=== PATIENT | female | born 1950 | race Caucasian/White ===

== ENCOUNTER → 2017-09-08 | Outpatient (CLI) | payer MEDICARE ==
--- NOTE | 2017-09-14 13:10 | MM ---
Reason for exam: screening (asymptomatic). Last mammogram was performed 1 year and 1 month ago. History: Patient is postmenopausal. Took estrogen for 11 years beginning at age 39. Took progesterone for 11 years beginning at age 39. Physical Findings: A clinical breast exam by your physician is recommended on an annual basis and results should be correlated with mammographic findings. MG 3D Screening Mammo W/Cad Bilateral CC and MLO view(s) were taken. Prior study comparison: August 02, 2016, bilateral MG screening mammo w CAD. July 27, 2015, bilateral MG 3d screening mammo w/cad. There are scattered fibroglandular densities. There is chronic nodularity in the right breast. No significant changes when compared with prior studies. ASSESSMENT: Negative, BI-RAD 1 RECOMMENDATION: Routine screening mammogram of both breasts in 1 year.
== END | disposition home or self-care (01) ==
LOC: RADMAMWWP 08:33
PROVIDERS: ATTEND Internal Medicine Geriatric Medicine
DX: Z12.31 Encounter for screening mammogram for malignant neoplasm of breast (principal)
CPT/HCPCS: 77063; G0202

== ENCOUNTER 2018-09-15 06:19 | Inpatient (IN) | payer MEDICARE ==
[2018-09-15] MEDS ORDERED: MORPHINE SULFATE 2 MG/ML SYRINGE IVP STA (07:39)
--- NOTE | 2018-09-15 07:44 | ED ---
General Adult HPI - General Chief complaint: Abdominal Pain Stated complaint: Abdominal Pain Source: patient Mode of arrival: wheelchair Limitations: no limitations - History of Present Illness Initial comments: Dictation was produced using [employer] dictation software. please excuse any grammatical, word or spelling errors. Chief Complaint: 67-year-old female with past medical history of cholecystectomy, diabetes and dyslipidemia presents with left lower quadrant abdominal pain since 4:30 this morning. History of Present Illness: An is 67-year-old female. She was rolling in bed when she experienced a sharp tearing pain in her left lower quadrant, supraumbilical area. Patient states she's never expressed pain like this in the past. Patient has history of cholecystectomy. Denies any constitutional symptoms. No nausea or vomiting. Patient states she felt slightly nauseous in the beginning however symptoms improved. Patient states her pain is sharp and severe. Worse with movement. Over the last several days patient has had some gnawing pain in that area. Denies any changes in bowel habits. The ROS documented in this emergency department record has been reviewed and confirmed by me. Those systems with pertinent positive or negative responses have been documented in the HPI. All other systems are other negative and/or noncontributory. - Related Data Home Medications Medication Instructions Recorded Confirmed Cyanocobalamin (Vitamin B-12) 1,000 mcg PO DAILY 09/15/18 09/15/18 [Vitamin B-12] Ergocalciferol (Vitamin D2) 50,000 unit PO Q14D 09/15/18 09/15/18 [Vitamin D2] Losartan Potassium 50 mg PO DAILY 09/15/18 09/15/18 [place]-3 Fatty Acids [Melstone-3] 1,000 mg PO DAILY 09/15/18 09/15/18 Omeprazole [PriLOSEC] 20 mg PO AC-BRKFST 09/15/18 09/15/18 Pravastatin Sodium [Pravachol] 40 mg PO HS 09/15/18 09/15/18 Turmeric/Cumin 1 tab PO DAILY 09/15/18 09/15/18 Ubidecarenone [Co Q-10] 100 mg PO DAILY 09/15/18 09/15/18 Vits A,C,E/Lutein/Minerals 1 tab PO DAILY 09/15/18 09/15/18 [Ocuvite with Lutein Tablet] metFORMIN HCL [Glucophage] 500 mg PO BID 09/15/18 09/15/18 Allergies Allergy/AdvReac Type Severity Reaction Status Date / Time No Known Allergies Allergy Verified 09/15/18 09:38 Review of Systems ROS Statement: Those systems with pertinent positive or pertinent negative responses have been documented in the HPI. ROS Other: All systems not noted in ROS Statement are negative. Past Medical History Past Medical History: Diabetes Mellitus, Hyperlipidemia History of Any Multi-Drug Resistant Organisms: None Reported Past Surgical History: Cholecystectomy, Joint Replacement Additional Past Surgical History / Comment(s): left knee replaced, left eye surgery, Past Psychological History: No Psychological Hx Reported Smoking Status: Never smoker Past Alcohol Use History: Occasional Past Drug Use History: None Reported General Exam - General Exam Comments Initial Comments: PHYSICAL EXAM: General Impression: Alert and oriented x3, not in acute distress HEENT: Normocephalic atraumatic, extra-ocular movements intact, pupils equal and reactive to light bilaterally, mucous membranes moist. Cardiovascular: Heart regular rate and rhythm, S1&S2 audible, no murmurs, rubs or gallops Chest: Lungs clear to auscultation bilaterally, no rhonchi, no wheeze, no rales Abdomen: Bowel sounds present, abdomen soft, mild tenderness to palpation over the left lower quadrant, suprapubic umbilical area, no palpable masses Musculoskeletal: Pulses present and equal in all extremities, no peripheral edema Motor: Power 5/5 bilaterally, no focal deficits noted Neurological: CN II-XII grossly intact, no focal motor or sensory deficits noted Skin: Intact with no visualized rashes Psych: Normal affect and mood Limitations: no limitations Course Vital Signs 09/15/18 09/15/18 09/15/18 06:43 08:30 09:00 Temperature 98.2 F Pulse Rate 61 Respiratory 18 Rate Blood Pressure 209/85 195/97 184/75 O2 Sat by Pulse 100 Oximetry Medical Decision Making - Medical Decision Making 67-year-old female presents with chief complaint of acute onset tearing suprapubic and left lower quadrant abdominal tenderness. Vital signs upon arrival shows hypertension of 209 systolic. Pulse vital signs within acceptable limits. Differential includes abdominal hernia, nephrolithiasis, symptomatic cystitis, diverticulitis. Laboratory evaluation obtained. Hemoglobin stable at 12.5. Rest of CBC unremarkable. Metabolic panel is unremarkable. Urinalysis negative. CT abdomen and pelvis shows 7 x 4 x 10 cm left rectus abdominis wall hematoma. Patient denies any blood thinners. Repeat blood pressure shows elevated blood pressure 199/104. Patient given hydralazine. Discussed patient case with Dr. Holder who is on-call for general surgery. Recommends that patient be observed for 24 hours. Abdominal binder was placed over patient's abdomen. Patient be admitted to Dr. márquez.. - Lab Data Result diagrams: 09/15/18 08:08 09/15/18 08:08 Lab Results 09/15/18 09/15/18 09/15/18 Range/Units 08:08 08:08 08:08 WBC 7.5 (3.8-10.6) k/uL RBC 4.42 (3.80-5.40) m/uL Hgb 12.5 (11.4-16.0) gm/dL Hct 39.1 (34.0-46.0) % MCV 88.4 (80.0-100.0) fL MCH 28.4 (25.0-35.0) pg MCHC 32.1 (31.0-37.0) g/dL RDW 13.8 (11.5-15.5) % Plt Count 202 (150-450) k/uL Neutrophils % 79 % Lymphocytes % 14 % Monocytes % 4 % Eosinophils % 2 % Basophils % 1 % Neutrophils # 5.9 (1.3-7.7) k/uL Lymphocytes # 1.0 (1.0-4.8) k/uL Monocytes # 0.3 (0-1.0) k/uL Eosinophils # 0.2 (0-0.7) k/uL Basophils # 0.0 (0-0.2) k/uL Hypochromasia Slight Sodium 143 (137-145) mmol/L Potassium 4.7 (3.5-5.1) mmol/L Chloride 110 H (98-107) mmol/L Carbon Dioxide 25 (22-30) mmol/L Anion Gap 8 mmol/L BUN 15 (7-17) mg/dL Creatinine 0.66 (0.52-1.04) mg/dL Est GFR (CKD-EPI)AfAm >90 (>60 ml/min/1.73 sqM) Est GFR (CKD-EPI)NonAf >90 (>60 ml/min/1.73 sqM) Glucose 116 H (74-99) mg/dL Calcium 10.1 (8.4-10.2) mg/dL Total Bilirubin 0.6 (0.2-1.3) mg/dL AST 24 (14-36) U/L ALT 19 (9-52) U/L Alkaline Phosphatase 68 (38-126) U/L Total Protein 7.6 (6.3-8.2) g/dL Albumin 4.3 (3.5-5.0) g/dL Lipase 129 (23-300) U/L Urine Color Light Yellow Urine Appearance Clear (Clear) Urine pH 5.5 (5.0-8.0) Ur Specific [place] 1.008 (1.001-1.035) Urine Protein Negative (Negative) Urine Glucose (UA) Negative (Negative) Urine Ketones Negative (Negative) Urine Blood Negative (Negative) Urine Nitrite Negative (Negative) Urine Bilirubin Negative (Negative) Urine Urobilinogen <2.0 (<2.0) mg/dL Ur Leukocyte Esterase Negative (Negative) Disposition Clinical Impression: Hematoma Disposition: ADMITTED IP TO THIS HOSP Condition: Fair Referrals: Chet Ibarra MD [Primary Care Provider] - 1-2 days Decision Time: 09:56
[2018-09-15 08:23] LABS: Basophils % (A) 1 %; Eosinophils # (A) 0.2 k/uL (0-0.7); Eosinophils % (A) 2 %; HCT 39.1 % (34.0-46.0); HGB 12.5 gm/dL (11.4-16.0); Hypochromasia Slight; Lymphocytes % (A) 14 %; MCH 28.4 pg (25.0-35.0); MCHC 32.1 g/dL (31.0-37.0); MCV 88.4 fL (80.0-100.0); Monocytes # (A) 0.3 k/uL (0-1.0); Monocytes % (A) 4 %; Neutrophils # (A) 5.9 k/uL (1.3-7.7); Neutrophils % (A) 79 %; Platelet Count 202 k/uL (150-450); RBC 4.42 m/uL (3.80-5.40); RDW 13.8 % (11.5-15.5); WBC 7.5 k/uL (3.8-10.6)
[2018-09-15 08:25] LABS: Appearance,Urine Clear (Clear); Bilirubin,Urine Negative (Negative); Blood,Urine Negative (Negative); Color,Urine Light Yellow; Glucose,Urine (UA) Negative (Negative); Ketones,Urine Negative (Negative); Leukocyte Esterase,Urine Negative (Negative); Nitrite,Urine Negative (Negative); PH, Urine 5.5 (5.0-8.0); Protein,Urine Negative (Negative); Specific Gravity,Urine 1.008 (1.001-1.035); Urobilinogen,Urine <2.0 mg/dL (<2.0)
[2018-09-15 08:34] LABS: ALT 19 U/L (9-52); AST 24 U/L (14-36); Albumin 4.3 g/dL (3.5-5.0); Alkaline Phosphatase 68 U/L (38-126); Anion Gap 8 mmol/L; Blood Urea Nitrogen 15 mg/dL (7-17); Calcium 10.1 mg/dL (8.4-10.2); Carbon Dioxide 25 mmol/L (22-30); Chloride 110 mmol/L (98-107); Glucose 116 mg/dL (74-99); Lipase 129 U/L (23-300); Potassium 4.7 mmol/L (3.5-5.1); Sodium 143 mmol/L (137-145); Total Bilirubin 0.6 mg/dL (0.2-1.3); Total Protein 7.6 g/dL (6.3-8.2)
--- NOTE | 2018-09-15 09:31 | CT ---
EXAMINATION TYPE: CT abdomen pelvis w con DATE OF EXAM: 09/15/2018 COMPARISON: None INDICATION: left side abd pain DLP: 1228.9 mGycm, Automated exposure control for dose reduction was used. CONTRAST: 100 mL of Isovue 300. Study performed without Oral Contrast TECHNIQUE: Axial images were obtained from above the diaphragm to the pubic rami in the axial plane a t 5 mm thick sections. Reconstructed images are reviewed on the computer in the coronal plane. FINDINGS: Limited CT sections are obtained the lung bases. The lung bases are clear. Mild coronary artery vanita cification may be present. Small hiatal hernia may be present. CT ABDOMEN: Liver: Normal Spleen: Normal Pancreas: Normal Adrenal glands: There is prominence of the anterior right adrenal gland measuring 1.5 cm in transvers e dimension. Left adrenal gland appears normal. Gallbladder: Not identified. Kidneys: No masses are evident. No hydronephrosis is present. There is a 7.4 cm cyst on the inferio r lateral portion right kidney measuring 7.4 cm and 4 Hounsfield units. Tiny cortical renal cysts pre sent on the left mid kidney measuring 0.5 cm and is too small to classify as simple. Delayed images were obtained through the kidneys, which remain unremarkable. Aorta: Vascular calcification is within the aorta. Inferior vena cava: Normal. CT PELVIS: There is a rectus abdominis muscle oval density present. This measures approximately 7.4 x 4.7 x 10.4 cm. Left Rectus abdominis muscle wall hematoma is suspected. Loops of bowel within the abdomen and pelvis are normal. Studies performed without oral contrast limiting bowel evaluation. Appendix: Not identified. No suspicious tubular structures or inflammatory changes are evident. Urinary bladder: Normal. Genitourinary structures: Uterus and adnexal regions are normal. Osseous structures: No suspicious lytic or sclerotic lesions. There is some sclerosis at the pubic sy mphysis. Pubic symphysitis could be considered. IMPRESSIONS: 1. Rectus abdominis muscle hematoma anterior left abdominal wall
[2018-09-15] MEDS ORDERED: LABETALOL 5 MG/ML VIAL MDV IVP STA (09:54)
[2018-09-15] MEDS ORDERED: hydrALAZINE HCL 20 MG/ML 1 ML VIAL IVP STA (09:55)
[2018-09-15] MEDS ORDERED: NALOXONE 0.4 MG/ML 1 ML VIAL IV PRN (09:56)
[2018-09-15] MEDS ORDERED: MORPHINE SULFATE 4 MG/ML SYRINGE IV PRN (09:56)
[2018-09-15] MEDS: SODIUM CHLORIDE 0.9% 1,000 ML IV SCH (10:19)
[2018-09-15 10:29] LABS: INR 0.9 (<1.2); Prothrombin Time 9.6 sec (9.0-12.0)
[2018-09-15 12:34] VITALS: BMI 33.4
[2018-09-15 13:09] VITALS: RESP 16
[2018-09-15] MEDS ORDERED: LOSARTAN 50 MG TAB PO STA (13:25)
--- NOTE | 2018-09-15 13:32 | P.HPIM ---
History of Present Illness H&P Date: 09/15/18 Chief Complaint: Abdominal pain secondary to hematoma This is a pleasant 67-year-old female with a past medical history of cholecystectomy, diabetes, hyperlipidemia who presented to the emergency department with left lower quadrant abdominal pain since 4:30 this morning. Patient states that she was rolling in bed when she experiences sharp tearing pain in her left lower quadrant supraumbilical area. Patient states that she's never experienced pain like this before in the past. She does have history of cholecystectomy. She denies any nausea or vomiting. Denies any sort of trauma. Patient states that she did have some slight nausea in the beginning however those symptoms have improved. Patient states that the pain is sharp and pascual [place] and worsen with movement. Patient presents now resting comfortably without any complaints. Patient denies hematuria, nausea, vomiting. Review of Systems Constitutional: Denies anorexia, Denies chills, Denies fatigue, Denies fever, Denies weight gain, Denies weight loss Eyes: denies blurred vision, denies discharge Ears: deny: decreased hearing, ear discharge Ears, nose, mouth and throat: Denies dental pain, Denies dysphagia, Denies epistaxis Cardiovascular: Reports orthopnea, Denies chest pain, Denies dyspnea on exertion , Denies edema, Denies lightheadedness, Denies palpitations, Denies rapid heart beat, Denies syncope Respiratory: Denies cough, Denies dyspnea, Denies snoring Gastrointestinal: Reports abdominal pain, Denies change in bowel habits, Denies coffee ground emesis, Denies hematemesis, Denies hematochezia, Denies loss of appetite, Denies melena, Denies nausea, Denies vomiting Genitourinary: Denies dysuria, Denies hematuria Musculoskeletal: Denies gait dysfunction, Denies muscle weakness Integumentary: Denies pruritus, Denies rash, Denies wounds Neurological: Denies aphasia, Denies confusion, Denies syncope, Denies vertigo, Denies weakness Psychiatric: Denies anxiety, Denies depression, Denies sadness/tearfulness, Denies sleep disturbances Endocrine: Denies excessive thirst, Denies flushing Hematologic/Lymphatic: Denies easy bleeding, Denies easy bruising Past Medical History Past Medical History: Diabetes Mellitus, Hyperlipidemia History of Any Multi-Drug Resistant Organisms: None Reported Past Surgical History: Cholecystectomy, Joint Replacement Additional Past Surgical History / Comment(s): left knee replaced, left eye surgery, Past Anesthesia/Blood Transfusion Reactions: Postoperative Nausea & Vomiting ( PONV) Past Psychological History: No Psychological Hx Reported Smoking Status: Never smoker Past Alcohol Use History: Occasional Past Drug Use History: None Reported Medications and Allergies Home Medications Medication Instructions Recorded Confirmed Type Cyanocobalamin (Vitamin B-12) 1,000 mcg PO DAILY 09/15/18 09/15/18 History [Vitamin B-12] Ergocalciferol (Vitamin D2) 50,000 unit PO Q14D 09/15/18 09/15/18 History [Vitamin D2] Losartan Potassium 50 mg PO DAILY 09/15/18 09/15/18 History [place]-3 Fatty Acids [[place]-3] 1,000 mg PO DAILY 09/15/18 09/15/18 History Omeprazole [PriLOSEC] 20 mg PO AC-BRKFST 09/15/18 09/15/18 History Pravastatin Sodium [Pravachol] 40 mg PO HS 09/15/18 09/15/18 History Turmeric/Cumin 1 tab PO DAILY 09/15/18 09/15/18 History Ubidecarenone [Co Q-10] 100 mg PO DAILY 09/15/18 09/15/18 History Vits A,C,E/Lutein/Minerals 1 tab PO DAILY 09/15/18 09/15/18 History [Ocuvite with Lutein Tablet] metFORMIN HCL [Glucophage] 500 mg PO BID 09/15/18 09/15/18 History Allergies Allergy/AdvReac Type Severity Reaction Status Date / Time No Known Allergies Allergy Verified 09/15/18 09:38 Physical Exam Vitals: Vital Signs Temp Pulse Pulse Resp BP BP Pulse Ox 09/15/18 12:00 98.4 F 78 16 194/76 09/15/18 11:10 185/75 09/15/18 10:51 63 18 195/82 100 09/15/18 10:00 199/104 09/15/18 09:55 98.2 F 75 18 199/104 100 09/15/18 09:00 184/75 09/15/18 08:30 195/97 09/15/18 06:43 98.2 F 61 18 209/85 100 Intake and Output 09/14/18 09/15/18 09/15/18 22:59 06:59 14:59 Intake Total 20 Balance 20 Intake: Intake, IV Titration 20 Amount Sodium Chloride 0.9% 1, 20 000 ml @ 20 mls/hr IV . Q24H [facility] Rx#:[id number] Other: Weight 99.79 kg 99.79 kg - Constitutional General appearance: average body habitus, cooperative, no acute distress - EENT Eyes: anicteric sclerae, EOMI, PERRLA ENT: hearing grossly normal, NA/AT - Neck Neck: no lymphadenopathy, normal ROM, no rigidity, no stridor, no thyromegaly - Respiratory Respiratory: bilateral: CTA, negative: diminished, dullness, rales, rhonchi, wheezing, prolonged expiration, prolonged inspiration, other - Cardiovascular Rhythm: regular Heart sounds: normal: S1, S2 Abnormal Heart Sounds: no systolic murmur, no diastolic murmur, no rub, no S3 Gallop, no S4 Gallop, no click, no other - Gastrointestinal General gastrointestinal: normal bowel sounds, no organomegaly, soft, tenderness (No ecchymosis noted) Localized gastrointestinal: tender: LLQ - Integumentary Integumentary: normal turgor - Neurologic Neurologic: CNII-XII intact - Musculoskeletal Musculoskeletal: gait normal, strength equal bilaterally - Psychiatric Psychiatric: A&O x's 3, appropriate affect, intact judgment & insight Results CBC & Chem 7: 09/15/18 08:08 09/15/18 08:08 Labs: Abnormal Lab Results - Last 24 Hours (Table) 09/15/18 Range/Units 08:08 Chloride 110 H (98-107) mmol/L Glucose 116 H (74-99) mg/dL Thrombosis Risk Factor Assmnt - Choose All That Apply Each Factor Represents 1 point: Obesity (BMI >25), Swollen legs (current), Varicose veins Each Risk Factor Represents 2 Points: Age 61-74 years Thrombosis Risk Factor Assessment Total Risk Factor Score: 5 Thrombosis Risk Factor Assessment Level: High Risk Assessment and Plan Plan: 1. Abdominal pain secondary to hematoma. monitor hemoglobin, blood pressure and pulse. We will obtain Surgical consult. Abdominal CT completed showing rectus abdominis muscle hematoma anterior left abdominal wall. If patient does not have any episodes of continuing bleeding the plan is to discharge her home tomorrow. 2. Diabetes. Continue Metformin 500 mg by mouth twice a day 3. Hypertension. Continue Cozaar 50 mg by mouth daily. 3. GERD. Continue Omeprazole 20 mg by mouth daily 4. Hyperlipidemia. Continue Pravastatin 40 mg by mouth at bedtime Disposition: Home possibly tomorrow Impression and plan of care have been directed as dictated by the signing physician. Alexus Ching nurse practitioner acting as scribe for signing physician.
--- NOTE | 2018-09-15 16:31 | P.GSCN ---
History of Present Illness Consult date: 09/15/18 History of present illness: CHIEF COMPLAINT: Rectus sheath hematoma, left abdomen HISTORY OF PRESENT ILLNESS: The patient is a 67-year-old female who comes in after developing acute onset left abdominal wall pain after stretching today. She had studies showing an acute rectus sheath hematoma. She is tolerating diet. No prior episodes. She does take Vitamins A, E, D including fish oil and tumeric at least for the last 3 months. She denies any additional trauma to the abdomen. As a result of an acute and large rectus sheath hematoma, general surgery is consulted including her admission. PAST MEDICAL HISTORY: Please see list PAST SURGICAL HISTORY: Please see list MEDICATIONS: Please see list ALLERGIES: Denies. SOCIAL HISTORY: No illicit drug use or recent tobacco use FAMILY HISTORY: Noncontributory REVIEW OF ORGAN SYSTEMS: CONSTITUTIONAL: No reports of fevers or chills. HEENT: Denies any troubles with the vision or hearing. ENDOCRINE: No hypothyroidism. Has diabetes. RESPIRATORY: No recent pneumonias. CARDIOVASCULAR: Denies chest pain or palpitations. Has hyperlipidemia including hypertension GI: No blood in stools or constipation. MUSCULOSKELETAL: Has occasional joint pain including back pain. NEURO: No seizure disorders or headaches. No recent stroke. PSYCH: No depression or suicidal ideation. GENITOURINARY: No active blood in urine. No urinary hesitancy. HEMATOLOGIC: No personal or family history of DVTs or pulmonary emboli. SKIN: No skin cancer. No rash. PHYSICAL EXAM: VITAL SIGNS: Reviewed GENERAL: Well-developed pleasant in no acute distress. HEENT: No scleral icterus. Extraocular movements grossly intact. Moist buccal mucosa. NECK: Supple without lymphadenopathy. CHEST: Unlabored respirations. Equal bilateral excursions. CARDIOVASCULAR: Regular rate regular rhythm rhythm. Distal 2+ pulses. ABDOMEN: Soft, nondistended. Tender along the left mid to left lower abdomen. No peritonitis. No abdominal wall ecchymosis. MUSCULOSKELETAL: No clubbing, cyanosis, or edema. NEURO: Cranial nerves II to XII within normal limits. No focal or lateralizing signs. PSYCH: Alert and oriented to person, place and time. SKIN: Well-perfused good skin turgor. ASSESSMENT: 1. Acute rectus sheath hematoma, left abdomen 2. Acute abdominal pain, left lower abdomen PLAN: 1. Re-check serial hemoglobin 2. Recommend abdominal binder on at all times except for showering. 3. Medication review performed with increased risk of bleeding from Vitamin A, E , fish oil and tumeric. 4. Limit abdominal wall stretches for 2 weeks to avoid re-injury. 5. May resume other medications in 4 weeks. 6. She can follow-up as outpatient. 7. Possible discharge home pending clinical stability. 8. No lifting over 4 pounds, bending, stretching for 2 weeks. Past Medical History Past Medical History: Diabetes Mellitus, Hyperlipidemia History of Any Multi-Drug Resistant Organisms: None Reported Past Surgical History: Cholecystectomy, Joint Replacement Additional Past Surgical History / Comment(s): left knee replaced, left eye surgery, Past Anesthesia/Blood Transfusion Reactions: Postoperative Nausea & Vomiting ( PONV) Past Psychological History: No Psychological Hx Reported Smoking Status: Never smoker Past Alcohol Use History: Occasional Past Drug Use History: None Reported Medications and Allergies Home Medications Medication Instructions Recorded Confirmed Type Cyanocobalamin (Vitamin B-12) 1,000 mcg PO DAILY 09/15/18 09/15/18 History [Vitamin B-12] Ergocalciferol (Vitamin D2) 50,000 unit PO Q14D 09/15/18 09/15/18 History [Vitamin D2] Losartan Potassium 50 mg PO DAILY 09/15/18 09/15/18 History [place]-3 Fatty Acids [[place]-3] 1,000 mg PO DAILY 09/15/18 09/15/18 History Omeprazole [PriLOSEC] 20 mg PO AC-BRKFST 09/15/18 09/15/18 History Pravastatin Sodium [Pravachol] 40 mg PO HS 09/15/18 09/15/18 History Turmeric/Cumin 1 tab PO DAILY 09/15/18 09/15/18 History Ubidecarenone [Co Q-10] 100 mg PO DAILY 09/15/18 09/15/18 History Vits A,C,E/Lutein/Minerals 1 tab PO DAILY 09/15/18 09/15/18 History [Ocuvite with Lutein Tablet] metFORMIN HCL [Glucophage] 500 mg PO BID 09/15/18 09/15/18 History Allergies Allergy/AdvReac Type Severity Reaction Status Date / Time No Known Allergies Allergy Verified 09/15/18 09:38 Surgical - Exam Vital Signs Temp Pulse Resp BP Pulse Ox 98.2 F 61 18 209/85 100 09/15/18 06:43 09/15/18 06:43 09/15/18 06:43 09/15/18 06:43 09/15/18 06:43 Results - Labs 09/16/18 05:43 09/15/18 08:08 Abnormal Lab Results - Last 24 Hours (Table) 09/15/18 Range/Units 08:08 Chloride 110 H (98-107) mmol/L Glucose 116 H (74-99) mg/dL Diabetes panel 09/15/18 Range/Units 08:08 Sodium 143 (137-145) mmol/L Potassium 4.7 (3.5-5.1) mmol/L Chloride 110 H (98-107) mmol/L Carbon Dioxide 25 (22-30) mmol/L BUN 15 (7-17) mg/dL Creatinine 0.66 (0.52-1.04) mg/dL Glucose 116 H (74-99) mg/dL Calcium 10.1 (8.4-10.2) mg/dL AST 24 (14-36) U/L ALT 19 (9-52) U/L Alkaline Phosphatase 68 (38-126) U/L Total Protein 7.6 (6.3-8.2) g/dL Albumin 4.3 (3.5-5.0) g/dL Calcium panel 09/15/18 Range/Units 08:08 Calcium 10.1 (8.4-10.2) mg/dL Albumin 4.3 (3.5-5.0) g/dL Pituitary panel 09/15/18 Range/Units 08:08 Sodium 143 (137-145) mmol/L Potassium 4.7 (3.5-5.1) mmol/L Chloride 110 H (98-107) mmol/L Carbon Dioxide 25 (22-30) mmol/L BUN 15 (7-17) mg/dL Creatinine 0.66 (0.52-1.04) mg/dL Glucose 116 H (74-99) mg/dL Calcium 10.1 (8.4-10.2) mg/dL Adrenal panel 09/15/18 Range/Units 08:08 Sodium 143 (137-145) mmol/L Potassium 4.7 (3.5-5.1) mmol/L Chloride 110 H (98-107) mmol/L Carbon Dioxide 25 (22-30) mmol/L BUN 15 (7-17) mg/dL Creatinine 0.66 (0.52-1.04) mg/dL Glucose 116 H (74-99) mg/dL Calcium 10.1 (8.4-10.2) mg/dL Total Bilirubin 0.6 (0.2-1.3) mg/dL AST 24 (14-36) U/L ALT 19 (9-52) U/L Alkaline Phosphatase 68 (38-126) U/L Total Protein 7.6 (6.3-8.2) g/dL Albumin 4.3 (3.5-5.0) g/dL - Imaging CT scan - abdomen: report reviewed, image reviewed CT scan - pelvis: report reviewed, image reviewed (Large rectus hematoma identified left lower abdomen) Assessment and Plan (1) Rectus sheath hematoma Current Visit: Yes Status: Acute Code(s): S30.1XXA - CONTUSION OF ABDOMINAL WALL, INITIAL ENCOUNTER SNOMED Code(s): 224526217 (2) Thin blood Current Visit: Yes Status: Acute Code(s): D69.6 - THROMBOCYTOPENIA, UNSPECIFIED SNOMED Code(s): 972388803 (3) Adverse effects of medication Current Visit: Yes Status: Acute Code(s): T50.905A - ADVERSE EFFECT OF UNSP DRUG/MEDS/BIOL SUBST, INIT SNOMED Code(s): 37706249 (4) Diabetes type 2, controlled Current Visit: Yes Status: Acute Code(s): E11.9 - TYPE 2 DIABETES MELLITUS WITHOUT COMPLICATIONS SNOMED Code(s): 49443379 (5) Hypertensive heart disease Current Visit: Yes Status: Acute Code(s): I11.9 - HYPERTENSIVE HEART DISEASE WITHOUT HEART FAILURE SNOMED Code(s): 10639711 (6) Obesity due to excess calories with serious comorbidity Current Visit: Yes Status: Acute Code(s): E66.09 - OTHER OBESITY DUE TO EXCESS CALORIES SNOMED Code(s): 549549622 (7) BMI 34.0-34.9,adult Current Visit: Yes Status: Acute Code(s): Z68.34 - BODY MASS INDEX (BMI) 34.0-34.9, ADULT SNOMED Code(s): 235808827
[2018-09-15 16:44] LABS: Glucose,Whole Blood 108 mg/dL (75-99)
[2018-09-15] MEDS: INSULIN ASPART 100 UNIT/ML 1 ML 10 ML VIAL SQ SCH ×2 (16:44→21:24)
[2018-09-15] MEDS ORDERED: ACETAMINOPHEN TAB 325 MG TAB PO PRN (17:11)
[2018-09-15] MEDS: metFORMIN 500 MG TAB PO SCH (20:31)
[2018-09-15] MEDS ORDERED: PRAVASTATIN SODIUM 40 MG TAB PO SCH (21:00)
[2018-09-15 21:15] LABS: Glucose,Whole Blood 103 mg/dL (75-99)
[2018-09-15 23:17] LABS: Hemoglobin A1C 5.7 % (4.0-6.0)
[2018-09-16] MEDS: INSULIN ASPART 100 UNIT/ML 1 ML 10 ML VIAL SQ SCH ×2 (05:44→11:44)
[2018-09-16 06:08] LABS: Glucose,Whole Blood 117 mg/dL (75-99)
[2018-09-16 06:12] LABS: Basophils % (A) 1 %; Eosinophils # (A) 0.2 k/uL (0-0.7); Eosinophils % (A) 4 %; HCT 35.4 % (34.0-46.0); HGB 11.3 gm/dL (11.4-16.0); Lymphocytes # (A) 1.1 k/uL (1.0-4.8); Lymphocytes % (A) 18 %; MCH 28.2 pg (25.0-35.0); MCHC 31.9 g/dL (31.0-37.0); MCV 88.4 fL (80.0-100.0); Monocytes # (A) 0.4 k/uL (0-1.0); Monocytes % (A) 6 %; Neutrophils # (A) 4.1 k/uL (1.3-7.7); Neutrophils % (A) 70 %; Platelet Count 180 k/uL (150-450); WBC 5.9 k/uL (3.8-10.6)
[2018-09-16] MEDS ORDERED: cloNIDine HCL 0.1 MG TAB PO STA (06:42)
[2018-09-16] MEDS ORDERED: LOSARTAN 50 MG TAB PO STA (06:42)
[2018-09-16] MEDS ORDERED: PANTOPRAZOLE 40 MG TABLET PO SCH (07:30)
[2018-09-16] MEDS: metFORMIN 500 MG TAB PO SCH (08:22)
[2018-09-16] MEDS: SODIUM CHLORIDE 0.9% 1,000 ML IV SCH (08:22)
[2018-09-16] MEDS ORDERED: LOSARTAN 50 MG TAB PO SCH (09:00)
[2018-09-16] MEDS ORDERED: NON-FORMULARY DRUG (Omega-3 Fatty Acids [Omega-3] 1,000 MG) PO SCH (09:00)
[2018-09-16] MEDS ORDERED: VIT A,C & E-LUTEIN-MINERALS 1 EACH TAB PO SCH (09:00)
[2018-09-16] MEDS ORDERED: NON-FORMULARY DRUG (Ubidecarenone [Co Q-10] 100 MG) PO SCH (09:00)
[2018-09-16] MEDS ORDERED: PANTOPRAZOLE 40 MG/10 ML VIAL IV SCH (09:00)
[2018-09-16 11:21] VITALS: BP 128/62; PULSE 64; TEMP 98.4
[2018-09-16 11:54] LABS: Glucose,Whole Blood 90 mg/dL (75-99)
[2018-09-16] MEDS ORDERED: CYANOCOBALAMIN 500 MCG TAB PO SCH (12:00)
--- NOTE | 2018-09-16 12:55 | P.DS ---
Providers Date of admission: 09/15/18 09:57 Attending physician: Humza Alston Consults: 09/15/18 09:44 Consult Physician Routine Consulting Provider: Keynaa Dawkins Consult Reason/Comments: abdominal wall hematoma Do you want consulting provider notified?: Already Contacted Primary care physician: [facility] Course: This is a pleasant 67-year-old female with a past medical history of cholecystectomy, diabetes, hyperlipidemia who presented to the emergency department with left lower quadrant abdominal pain since 4:30 this morning. Patient states that she was rolling in bed when she experiences sharp tearing pain in her left lower quadrant supraumbilical area. Patient states that she's never experienced pain like this before in the past. She does have history of cholecystectomy. She denies any nausea or vomiting. Denies any sort of trauma. Patient states that she did have some slight nausea in the beginning however those symptoms have improved. Patient states that the pain is sharp and pascual [place] and worsen with movement. Patient presents now resting comfortably without any complaints. Patient denies hematuria, nausea, vomiting. 09/16: Patient is resting comfortably with an abdominal binder in place. Patient states that there is still some tenderness in the left lower quadrant however it seems to be improving. Patient does not have any bruising at the site. Discussed with patient plans for follow-up in 4 limitations on bending and stretching the abdominal area. Patient was seen by Dr. Holder who also gave her instructions on post-care which patient verbalized understanding. Patient will be followed up with by her primary care doctor and also with Dr. Dawkins. Patient also complained of a ulceration to the left lower extremity anteriorly. Discussed with patient that she may use honey product on the site until she is seen by her primary care doctor where she can request a wound care consult. Discussed with patient to keep the area clean and dry and to change the dressing daily. 1. Abdominal pain secondary to hematoma. monitor hemoglobin, blood pressure and pulse. We will obtain Surgical consult. Abdominal CT completed showing rectus abdominis muscle hematoma anterior left abdominal wall. If patient does not have any episodes of continuing bleeding the plan is to discharge her home tomorrow. 2. Diabetes. 3. Hypertension. 3. GERD. 4. Hyperlipidemia. 5. Nonhealing ulceration to left lower extremity. Disposition: Home Impression and plan of care have been directed as dictated by the signing physician. Alexus Ching nurse practitioner acting as scribe for signing physician. Patient Condition at Discharge: Fair Plan - Discharge Summary Discharge Rx Participant: No New Discharge Prescriptions: New Acetaminophen Tab [Tylenol] 650 mg PO Q4HR PRN tab PRN Reason: Fever and/ or Mild Pain SILVER sulfADIAZINE CREAM [Silvadene Cream] 1 applic TOPICAL DAILY applic Continue Vits A,C,E/Lutein/Minerals [Ocuvite with Lutein Tablet] 1 tab PO DAILY [place]-3 Fatty Acids [[place]-3] 1,000 mg PO DAILY metFORMIN HCL [Glucophage] 500 mg PO BID Ubidecarenone [Co Q-10] 100 mg PO DAILY Pravastatin Sodium [Pravachol] 40 mg PO HS Omeprazole [PriLOSEC] 20 mg PO AC-BRKFST Losartan Potassium 50 mg PO DAILY Ergocalciferol (Vitamin D2) [Vitamin D2] 50,000 unit PO Q14D Cyanocobalamin (Vitamin B-12) [Vitamin B-12] 1,000 mcg PO DAILY Turmeric/Cumin 1 tab PO DAILY Discharge Medication List Cyanocobalamin (Vitamin B-12) [Vitamin B-12] 1,000 mcg PO DAILY 09/15/18 [ History] Ergocalciferol (Vitamin D2) [Vitamin D2] 50,000 unit PO Q14D 09/15/18 [History] Losartan Potassium 50 mg PO DAILY 09/15/18 [History] [place]-3 Fatty Acids [Luzerne-3] 1,000 mg PO DAILY 09/15/18 [History] Omeprazole [PriLOSEC] 20 mg PO AC-BRKFST 09/15/18 [History] Pravastatin Sodium [Pravachol] 40 mg PO HS 09/15/18 [History] Turmeric/Cumin 1 tab PO DAILY 09/15/18 [History] Ubidecarenone [Co Q-10] 100 mg PO DAILY 09/15/18 [History] Vits A,C,E/Lutein/Minerals [Ocuvite with Lutein Tablet] 1 tab PO DAILY 09/15/18 [History] metFORMIN HCL [Glucophage] 500 mg PO BID 09/15/18 [History] Acetaminophen Tab [Tylenol] 650 mg PO Q4HR PRN tab 09/16/18 [Rx] SILVER sulfADIAZINE CREAM [Silvadene Cream] 1 applic TOPICAL DAILY applic 09/16 [Rx] Follow up Appointment(s)/Referral(s): Chet Ibarra MD [Primary Care Provider] - 1-2 days Keyana Dawkins MD [STAFF PHYSICIAN] - 1 Week Activity/Diet/Wound Care/Special Instructions: May use honey to the site of lower extremity wound when changing dressing. Follow up at PCP for a request to wound care. Recommend abdominal binder on at all times except for showering. Medication review performed with increased risk of bleeding from Vitamin A, E, fish oil and tumeric. Limit abdominal wall stretches for 2 weeks to avoid re-injury. May resume other medications in 4 weeks. No lifting over 4 pounds, bending, stretching for 2 weeks.
[2018-09-16 13:07] LABS: HCT 36.9 % (34.0-46.0); Hypochromasia Slight; MCH 28.7 pg (25.0-35.0); MCHC 32.4 g/dL (31.0-37.0); MCV 88.8 fL (80.0-100.0); Mean Platelet Volume 8.9; Platelet Count 198 k/uL (150-450); RBC 4.16 m/uL (3.80-5.40); RDW 13.8 % (11.5-15.5); WBC 6.5 k/uL (3.8-10.6)
[2018-09-18] MEDS ORDERED: ERGOCALCIFEROL 50,000 UNIT CAP PO SCH (12:00)
== END 2018-09-16 14:01 | disposition home or self-care (01) | DRG 556 ==
LOC: EC 06:19 → 3SCARD 09:57
PROVIDERS: ADMIT Internal Medicine; ATTEND Internal Medicine
DX: M79.81 Nontraumatic hematoma of soft tissue (principal); L97.929 Non-pressure chronic ulcer of unspecified part of left lower leg with unspecified severity; E11.622 Type 2 diabetes mellitus with other skin ulcer; I11.9 Hypertensive heart disease without heart failure; K21.9 Gastro-esophageal reflux disease without esophagitis; E78.5 Hyperlipidemia, unspecified; E66.09 Other obesity due to excess calories; Z68.34 Body mass index [BMI] 34.0-34.9, adult; Z79.84 Long term (current) use of oral hypoglycemic drugs; Z79.899 Other long term (current) drug therapy; Z90.49 Acquired absence of other specified parts of digestive tract; Z96.652 Presence of left artificial knee joint
CPT/HCPCS: 36415; 74177; 80053; 81003; 83036; 83690; 85025; 85027; 85610; 96374; 96375; 99285

== ENCOUNTER → 2018-09-26 | Outpatient (CLI) | payer MEDICARE | END | disposition home or self-care (01) | LOC: RADUSWWP 13:43 | PROVIDERS: ATTEND Nurse Practitioner Family | DX: I83.009 Varicose veins of unspecified lower extremity with ulcer of unspecified site (principal) | CPT/HCPCS: 93923 ==

== ENCOUNTER → 2018-09-28 | Outpatient (CLI) | payer MEDICARE ==
--- NOTE | 2018-10-05 09:18 | MM ---
Reason for exam: screening (asymptomatic). Last mammogram was performed 1 year and 1 month ago. History: Patient is postmenopausal. Took estrogen for 11 years beginning at age 39. Took progesterone for 11 years beginning at age 39. MG 3D Screening Mammo W/Cad Bilateral CC and MLO view(s) were taken. Prior study comparison: September 08, 2017, bilateral MG 3d screening mammo w/cad. August 02, 2016, bilateral MG screening mammo w CAD. There are scattered fibroglandular densities. There are benign-appearing bilateral breast calcifications. No suspicious abnormality. No significant changes when compared with prior studies. ASSESSMENT: Benign, BI-RAD 2 RECOMMENDATION: Routine screening mammogram of both breasts in 1 year.
== END | disposition home or self-care (01) ==
LOC: RADMAMWWP 14:36
PROVIDERS: ATTEND Internal Medicine Geriatric Medicine
DX: Z12.31 Encounter for screening mammogram for malignant neoplasm of breast (principal)
CPT/HCPCS: 77063; 77067

== ENCOUNTER → 2018-10-30 | Outpatient (CLI) | payer MEDICARE ==
--- NOTE | 2018-10-30 17:16 | BD ---
EXAMINATION TYPE: Axial Bone Density DATE OF EXAM: 10/30/2018 COMPARISON: NONE CLINICAL HISTORY: 68-year-old female age-related osteoporosis Height: 5 FT 6 1/2 IN Weight: 229 FRAX RISK QUESTIONS: Secondary Osteoporosis: 3. Menopause before 45: YES RISK FACTORS HISTORY OF: Active: YES Postmenopausal woman: AGE 41 Lost more than 2 inches in height since high school: YES MEDICATIONS: Additional Medications: METFORMIN, PREVASTATIN, LOSARTIN, VITAMINS, OMEPRAZOLE Additional History: TYPE 2 DIABETIC EXAM MEASUREMENTS: Bone mineral densitometry was performed using the [employer] System. Bone mineral density as measured about the Lumbar spine is: ----- L1-L4(G/cm2): 1.379 T Score Values are as follows: ----- L2: 1.6 ----- L3: 1.7 ----- L4: 2.2 ----- L1-L4: 1.7 Bone mineral density has: INCREASED 0.4 % since study of: 2013 Bone mineral density about the R hip (g/cm2): 1.012 Bone mineral density about the L hip (g/cm2): 1.003 T Score values are as follows: -----R Neck: -0.2 -----L Neck: -0.2 -----R Total: 1.2 -----L Total: 1.1 Bone mineral density has: DECREASED -3.6 % since study of: 2013 IMPRESSION: Normal (Values between +1 and -1 indicate normal bone mass). Consider repeating this study in 5 year s or sooner if there is some new clinical indication. NOTE: T-SCORE=SD OF THE YOUNG ADULT MEAN.
== END | disposition home or self-care (01) ==
LOC: RADBDWWP 10-12 14:56
PROVIDERS: ATTEND Internal Medicine Geriatric Medicine
DX: Z53.9 Procedure and treatment not carried out, unspecified reason (principal)

== ENCOUNTER → 2019-02-05 | Outpatient (CLI) | payer MEDICARE ==
--- NOTE | 2019-02-05 13:48 | XR ---
Bilateral hips HISTORY: Low back pain, bilateral hip pain 2 views of each hip submitted on a total 4 images Marginal spurring is present in the femoral heads bilaterally. Mild joint space loss. Alignment and b one mineralization are maintained. There is calcification at the level of the greater trochanter bila terally possibly indicating calcific tendinitis. Multiple calcifications are present within the pelvi s. IMPRESSION: Osteoarthritis and additional findings above.
--- NOTE | 2019-02-05 13:50 | XR ---
Lumbar spine HISTORY: Back pain 3 views lumbar spine Multilevel spondylosis is present. Lumbar vertebral bodies show preserved height and alignment. Scler osis present in the posterior elements. Loss of disc height is present at L4-5 with associated vacuum phenomenon. Vertebral disc height loss is present at multiple levels. Vascular calcifications are no angy incidentally. Bone mineralization is reduced. IMPRESSION: Degenerative disc disease, facet arthropathy, osteopenia.
== END | disposition home or self-care (01) ==
LOC: RADXRMAIN 10:37
PROVIDERS: ATTEND Internal Medicine Geriatric Medicine
DX: M51.36 Other intervertebral disc degeneration, lumbar region (principal); M46.96 Unspecified inflammatory spondylopathy, lumbar region; M85.88 Other specified disorders of bone density and structure, other site; M16.0 Bilateral primary osteoarthritis of hip
CPT/HCPCS: 72100; 73521

== ENCOUNTER → 2019-11-05 | Outpatient (CLI) | payer MEDICARE ==
--- NOTE | 2019-11-06 14:51 | MM ---
Reason for exam: screening (asymptomatic). Last mammogram was performed 1 year and 1 month ago. History: Patient is postmenopausal. Took estrogen for 11 years beginning at age 39. Took progesterone for 11 years beginning at age 39. Physical Findings: A clinical breast exam by your physician is recommended on an annual basis and results should be correlated with mammographic findings. MG 3D Screening Mammo W/Cad Bilateral CC and MLO view(s) were taken. Prior study comparison: September 28, 2018, bilateral MG 3d screening mammo w/cad. September 08, 2017, bilateral MG 3d screening mammo w/cad. There are scattered fibroglandular densities. There is chronic nodularity in the right breast. No significant changes when compared with prior studies. ASSESSMENT: Benign, BI-RAD 2 RECOMMENDATION: Routine screening mammogram of both breasts in 1 year.
== END | disposition home or self-care (01) ==
LOC: RADMAMWWP 13:15
PROVIDERS: ATTEND Internal Medicine Geriatric Medicine
DX: Z12.31 Encounter for screening mammogram for malignant neoplasm of breast (principal)
CPT/HCPCS: 77063; 77067

== ENCOUNTER → 2020-11-16 | Outpatient (CLI) | payer MEDICARE ==
--- NOTE | 2020-11-18 08:21 | MM ---
Reason for exam: screening (asymptomatic). Last mammogram was performed 1 year ago. History: Patient is postmenopausal. Took hormonal contraceptives for 20 years. Took estrogen for 11 years beginning at age 39. Took progesterone for 11 years beginning at age 39. Physical Findings: A clinical breast exam by your physician is recommended on an annual basis and results should be correlated with mammographic findings. MG 3D Screening Mammo W/Cad Bilateral CC and MLO view(s) were taken. Prior study comparison: November 05, 2019, bilateral MG 3d screening mammo w/cad. September 28, 2018, bilateral MG 3d screening mammo w/cad. There are scattered fibroglandular densities. There is chronic nodularity in the right breast. No significant changes when compared with prior studies. ASSESSMENT: Benign, BI-RAD 2 RECOMMENDATION: Routine screening mammogram of both breasts in 1 year.
== END ==
LOC: RADMAMWWP 15:35
PROVIDERS: ATTEND Internal Medicine Geriatric Medicine
DX: Z12.31 Encounter for screening mammogram for malignant neoplasm of breast (principal); Z78.0 Asymptomatic menopausal state
CPT/HCPCS: 77063; 77067

== ENCOUNTER → 2021-12-31 | Outpatient (CLI) | payer MEDICARE ==
--- NOTE | 2022-01-03 09:57 | MM ---
Reason for exam: screening (asymptomatic). Last mammogram was performed 1 year and 1 month ago. History: Patient is postmenopausal. Took hormonal contraceptives for 20 years. Took estrogen for 11 years beginning at age 39. Took progesterone for 11 years beginning at age 39. Physical Findings: A clinical breast exam by your physician is recommended on an annual basis and results should be correlated with mammographic findings. MG 3D Screening Mammo W/Cad Bilateral CC, MLO, and XCCL view(s) were taken. Prior study comparison: November 16, 2020, bilateral MG 3d screening mammo w/cad. November 05, 2019, bilateral MG 3d screening mammo w/cad. There are scattered fibroglandular densities. There is no discrete abnormality. No significant changes when compared with prior studies. ASSESSMENT: Negative, BI-RAD 1 RECOMMENDATION: Routine screening mammogram of both breasts in 1 year.
== END | disposition home or self-care (01) ==
LOC: RADMAMWWP 09:28
PROVIDERS: ATTEND Internal Medicine Geriatric Medicine
DX: Z12.31 Encounter for screening mammogram for malignant neoplasm of breast (principal); Z78.0 Asymptomatic menopausal state
CPT/HCPCS: 77063; 77067

== ENCOUNTER → 2022-02-22 | Outpatient (CLI) | payer MEDICARE ==
--- NOTE | 2022-02-22 19:11 | BD ---
EXAMINATION TYPE: Axial Bone Density DATE OF EXAM: 02/22/2022 CLINICAL HISTORY: 71 years year old Female. ICD-10 CODE: M81.0 osteoporosis Height: 5 FT 6 1/4 IN Weight: 248 FRAX RISK QUESTIONS: Alcohol (3 or more units per day): NO Family History (Parent hip fracture): NO Glucocorticoids (More than 3mos): NO (Ex: prednisone, prednisolone, methylprednisolone, dexamethasone, and hydrocortisone). History of Fracture in Adulthood: NO Secondary Osteoporosis: 1. Type 1 Diabetes: NO 2. Hyperthyroidism: NO 3. Menopause before 45: YES 4. Malnutrition: NO 5. Chronic liver disease: NO Rheumatoid Arthritis: NO Current Tobacco Use: NO RISK FACTORS HISTORY OF: Surgery to Spine/Hip(right/left)/Wrist (right/left): NO Family History of Osteoporosis: NO Active: YES Diet low in dairy products/other sources of calcium: NO Postmenopausal woman: YES Take estrogen and/or progesterone medications: TOOK FOR APPROX 5 YEARS NOT NOW Lost more than 2 inches in height since high school: YES Frequent falls: NO Poor Health: GOOD Hyperparathyroidism: NO Adrenal Insufficiency: NO MEDICATIONS: Additional Medications: REPAGLINIDE,AMLODIPINE, VALSARTAN, PANTOPRAZOLE, ROSUVASTATIN, Additional History: TYPE 2 DIABETIC EXAM MEASUREMENTS: Bone mineral densitometry was performed using the [employer] System. Bone mineral density as measured about the Lumbar spine is: ----- L1-L4(G/cm2): 1.464 T Score Values are as follows: ----- L1: 1.6 ----- L2: 2.0 ----- L3: 2.6 ----- L4: 2.9 ----- L1-L4: 2.4 Bone mineral density has: INCREASED 5.7 % since study of: 2019 Bone mineral density about the R hip (g/cm2): 0.960 Bone mineral density about the L hip (g/cm2): 0.989 T Score values are as follows: -----R Neck: -0.6 -----L Neck: -0.3 -----R Total: 0.7 -----L Total: 1.1 Bone mineral density has: DECREASED -2.4 % since study of: 2019 FRAX%s: The graph provided illustrates a 7.5 % chance for a major osteoporotic fx and a 0.7 % chance for the hips probability for fx in 10 years time. IMPRESSION: Normal (Values between +1 and -1 indicate normal bone mass). Consider repeating this study in 5 year s or sooner if there is some new clinical indication. NOTE: T-SCORE=SD OF THE YOUNG ADULT MEAN.
== END | disposition home or self-care (01) ==
LOC: RADBDWWP 12:42
PROVIDERS: ATTEND Internal Medicine Geriatric Medicine
DX: M81.0 Age-related osteoporosis without current pathological fracture (principal)
CPT/HCPCS: 77080

== ENCOUNTER → 2023-06-06 | Outpatient (CLI) | payer MEDICARE ==
--- NOTE | 2023-06-08 09:32 | MM ---
Reason for Exam: Screening (asymptomatic). Last mammogram was performed 1 year(s) and 5 month(s) ago. Patient History: Menarche at age 11. First Full-Term at age 19. Postmenopausal. Estrogen for 11 years from age 39 until age 50. Progesterone for 11 years from age 39 until age 50. Patient used Hormonal Contraceptives for 20 years. Risk Values: Marisela 5 year model risk: 1.6%. NCI Lifetime model risk: 3.7%. Prior Study Comparison: 11/05/2019 Bilateral Screening Mammogram, [facility]. 11/16/2020 Bilateral Screening Mammogram, [facility]. 12/31/2021 Bilateral Screening Mammogram, [facility]. Tissue Density: There are scattered fibroglandular densities. Findings: Analyzed By CAD. There is no suspicious group of microcalcifications or new suspicious mass in either breast. Overall Assessment: Negative, BI-RAD 1 Management: Screening Mammogram of both breasts in 1 year. . Patient should continue monthly self-breast exams. A clinical breast exam by your physician is recommended on an annual basis. This exam should not preclude additional follow-up of suspicious palpable abnormalities. Note on Marisela scores and lifetime risk: 1. A Marisela score greater than 3% is considered moderate risk. If this is the case, consider specialist referral to assess eligibility for a risk reducing agent. 2. If overall lifetime risk for the development of breast cancer is 20% or higher, the patient may qualify for future screening with alternating mammogram and breast MRI. Electronically signed and approved by: Chilango Ledbetter M.D. Radiologis
== END | disposition home or self-care (01) ==
LOC: RADMAMWWP 15:54
PROVIDERS: ATTEND Internal Medicine Geriatric Medicine
DX: Z12.31 Encounter for screening mammogram for malignant neoplasm of breast (principal); Z78.0 Asymptomatic menopausal state
CPT/HCPCS: 77063; 77067

== ENCOUNTER → 2023-09-19 | Outpatient (CLI) | payer MEDICARE | END | disposition home or self-care (01) | LOC: LABWHC1 10:19 | PROVIDERS: ATTEND Nurse Practitioner Family | DX: Z53.9 Procedure and treatment not carried out, unspecified reason (principal) ==

== ENCOUNTER → 2023-09-19 | Outpatient (CLI) | payer MEDICARE ==
[2023-09-19 15:27] LABS: BUN/Creat Ratio 19.64 Ratio (12.00-20.00); Blood Urea Nitrogen 21.6 mg/dL (9.0-27.0); Carbon Dioxide 25.8 mmol/L (21.6-31.8); Chloride 105 mmol/L (96-109); Glucose 115 mg/dL (70-110); Potassium 5.2 mmol/L (3.5-5.5); Sodium 142 mmol/L (135-145)
[2023-09-19 15:28] LABS: Calcium 10.5 mg/dL (8.7-10.3)
[2023-09-19 15:29] LABS: Basophils # (A) 0.08 X 10*3/uL (0.00-0.10); Basophils % (A) 0.9 %; Eosinophils # (A) 0.47 X 10*3/uL (0.04-0.35); Eosinophils % (A) 5.3 %; HCT 37.6 % (37.2-46.3); HGB 11.6 g/dL (12.0-15.0); Lymphocytes # (A) 1.34 X 10*3/uL (0.90-5.00); Lymphocytes % (A) 15.1 %; MCH 27.4 pg (27.0-32.0); MCHC 30.9 g/dL (32.0-37.0); MCV 88.7 FL (80.0-97.0); Mean Platelet Volume 11.7 FL (9.5-12.2); Monocytes # (A) 0.75 X 10*3/uL (0.20-1.00); Monocytes % (A) 8.4 %; NRBC Per 100 WBC 0 X 10*3/uL (0.00-0.01); Neutrophils # (A) 6.19 X 10*3/uL (1.80-7.70); Neutrophils % (A) 69.7 %; Platelet Count 275 X 10*3/uL (140-440); RBC 4.24 X 10*6/uL (4.10-5.20); RDW 13.9 % (11.5-14.5); WBC 8.88 X 10*3/uL (4.50-10.00)
[2023-09-19 18:18] LABS: INR 0.97 sec (0.93-1.11); Prothrombin Time 10.5 sec (9.9-11.9)
== END | disposition home or self-care (01) ==
LOC: LABPAT 10:22
PROVIDERS: ATTEND Orthopaedic Surgery
DX: Z01.812 Encounter for preprocedural laboratory examination (principal); M17.11 Unilateral primary osteoarthritis, right knee; Z22.322 Carrier or suspected carrier of Methicillin resistant Staphylococcus aureus
CPT/HCPCS: 80048; 85025; 85610; 87070

== ENCOUNTER 2023-10-02 08:15 | Day surgery (SDC) | payer MEDICARE ==
--- NOTE | 2023-10-01 23:14 | HP ---
HISTORY AND PHYSICAL DATE OF SURGERY: 10/02/2023. HISTORY OF PRESENT ILLNESS: Marjorie Blanca is a 72-year-old patient seen with symptomatic right knee osteoarthritis. We discussed options for treatment. She elected to proceed with right total knee arthroplasty. Consent was obtained. Medical clearance was provided by Dr. Ibarra's office. PAST MEDICAL HISTORY: Asthma, hyperlipidemia. PAST SURGICAL HISTORY: Left total knee arthroplasty, cholecystectomy. DAILY MEDICATIONS: Unknown. ALLERGIES: Nickel. SOCIAL HISTORY: She denies tobacco use. PHYSICAL EVALUATION OF THE RIGHT KNEE: Her range of motion is -3/4 to 90 degrees. Mild effusion. Tenderness, medial joint line. Crepitus, medial patellofemoral compartments with range of motion. Pain with patellofemoral compression. Ligaments are stable. Hip rotation is without pain. Her distal neurovascular exam is intact. IMAGING STUDIES: Radiographs of the right knee reveal severe osteoarthritic changes. IMPRESSION: 1. Right knee osteoarthritis. 2. Hypertension. 3. Hyperlipidemia. PLAN: Right total knee arthroplasty. MMODL / IJN: [id number] /
[~2023-10-02 08:15] MED LIST: ACETAMINOPHEN TAB 500 MG TAB PO PRN; DEXAMETHASONE SOD PHOSPHATE 4 MG/ML 1 ML VIAL IV ONE; HYDROmorphone 0.5 MG/0.5 ML SYRINGE IVP PRN; LIDOCAINE 1% (10MG/ML) FOR IV START INTRADERMA PRN; MELOXICAM 7.5 MG TAB PO PRN; MIDAZOLAM 2 MG/2 ML VIAL IV PRN; ONDANSETRON 4 MG/2 ML VIAL IVP ONE; TRANEXAMIC 1,000 MG/100ML-NACL 1,000 MG in SALINE 1 100ML.BAG IVPB PRN; fentaNYL (PF) 50 MCG/ML 2 ML AMP IVP PRN
[2023-10-02 09:25] LABS: Glucose,Whole Blood 114 mg/dL (70-110)
--- NOTE | 2023-10-02 09:54 | P.ANPRN ---
Procedure Note - Anesthesia - Nerve Block Performed Right Adductor Canal Infusion Time Out Performed: Yes Date of Procedure: 10/02/23 Procedure Start Time: : Procedure Stop Time: :36 Location of Patient: PreOp Indication: Acute Post-Operative Pain, Analgesia, Requested by Surgeon Sedation Type: Sedate with meaningful contact maintained Preparation: Sterile Prep Position: Supine Catheter: Indwelling Needle Gauge: 21 Ultrasound used to visualize needle placement: Yes Ultrasound used to observe medication spread: Yes Injectate: 0.5% Ropivacaine (see comment for volume) (Ropiv 15ml) Blood Aspirated: No Pain Paresthesia on Injection Noted: No Resistance on Injection: Normal Events: Uneventful and Well Tolerated
[2023-10-02] MEDS ORDERED: ROPIVACAINE 1,100 MG, SODIUM CHLORIDE 0.9% 500 ML 330 ML, EMPTY PAIN BALL 1 EACH MISCELLANE PRN ×2 (09:56)
--- NOTE | 2023-10-02 09:56 | P.ANPRN ---
Procedure Note - Anesthesia - Nerve Block Performed Right Erikack Single Time Out Performed: Yes Date of Procedure: 10/02/23 Procedure Start Time: 09:37 Procedure Stop Time: :42 Location of Patient: PreOp Indication: Acute Post-Operative Pain, Analgesia, Requested by Surgeon Sedation Type: Sedate with meaningful contact maintained Preparation: Sterile Prep Position: Left Lateral Catheter: None Needle Types: Pajunk Needle Gauge: 21 Ultrasound used to visualize needle placement: Yes Ultrasound used to observe medication spread: Yes Injectate: 0.5% Ropivacaine (see comment for volume) (Ropiv 15ml+NS10ml) Blood Aspirated: No Pain Paresthesia on Injection Noted: No Resistance on Injection: Normal Image Stored and Saved: Yes Events: Uneventful and Well Tolerated
[2023-10-02] MEDS: LACTATED RINGERS 1,000 ML IV SCH ×2 (09:57→22:55)
[2023-10-02] MEDS ORDERED: MIDAZOLAM 2 MG/2 ML VIAL ONE (09:59)
[2023-10-02] MEDS ORDERED: TRANEXAMIC 1,000 MG/100ML-NACL PREMIX BAG ONE (09:59)
[2023-10-02] MEDS ORDERED: SODIUM CHLORIDE 0.9% (PF) 10 ML VIAL ONE (09:59)
[2023-10-02] MEDS ORDERED: KETAMINE HCL IN 0.9 % NACL 50 MG/5 ML SYRINGE ONE (09:59)
[2023-10-02] MEDS ORDERED: PROPOFOL 10 MG/ML 20 ML VIAL IV ONE (09:59)
[2023-10-02] MEDS ORDERED: fentaNYL (PF) 50 MCG/ML 2 ML AMP ONE (09:59)
[2023-10-02] MEDS ORDERED: ROPIVACAINE 5 MG/ML 30 ML VIAL ONE (09:59)
[2023-10-02] MEDS ORDERED: ceFAZolin 1,000 MG in SODIUM CHLORIDE 0.9% 1,000 ML IRRIGATION ONE (10:37)
[2023-10-02] MEDS ORDERED: NALOXONE 0.4 MG/ML 1 ML VIAL IV PRN (11:50)
[2023-10-02] MEDS ORDERED: HYDROmorphone 0.5 MG/0.5 ML SYRINGE IVP PRN ×3 (11:50)
[2023-10-02] MEDS ORDERED: LACTATED RINGERS 1,000 ML IV ONE (11:50)
[2023-10-02] MEDS ORDERED: ONDANSETRON 4 MG/2 ML VIAL IVP PRN (11:50)
[2023-10-02] MEDS ORDERED: HYDROcodone/APAP 5-325MG 1 EACH TAB PO PRN (11:50)
--- NOTE | 2023-10-02 11:50 | P.OP ---
Date of Procedure: 10/02/23 Preoperative Diagnosis: Right knee osteoarthritis Postoperative Diagnosis: Right knee osteoarthritis Procedure(s) Performed: Right total knee arthroplasty Implants: 1. Aesculap size 5 right cruciate-retaining cemented femur 2. Aesculap size T3/3 cemented tibial baseplate 3. Aesculap size T3/3 16mm polyethylene tibial insert 4. Aesculap size 3 all polyethylene cemented patella Anesthesia: regional (Adductor canal catheter, Ipack block), spinal Surgeon: Stevie Caruso Assistant Clinical Director #1: Martínez Duarte Estimated Blood Loss (ml): 45 Pathology: none sent Condition: stable Disposition: PACU Indications for Procedure: 72-year-old patient was seen with symptomatic right knee osteoarthritis. After having treatment options discussed, she elected to proceed with total knee arthroplasty. Operative Findings: See description of procedure Description of Procedure: Patient was taken to the operative suite after having an adductor canal catheter placed by the department of anesthesia. Patient underwent a spinal anesthetic by the department of anesthesia. Patient was given preoperative IV intake antibiotics and TXA. A well-padded tourniquet was placed about the right lower extremity. The lower extremity was then prepped and draped in the normal sterile orthopedic fashion. The extremity was elevated, a tourniquet was insufflated to 300. A standard anterior incision was made sharply through skin. Dissection was taken down through the subcutaneous soft tissues down to the extensor mechanism. A medial arthrotomy was performed, patella was everted and knee was flexed. There was advanced osteoarthritis noted. I introduced my distal intramedullary femoral drill. I then introduced the distal femoral cutting jig. Julian EVERETT secured the cutting jig with 2 pins. I held retractors in position while Julian EVERETT performed the distal femoral resection through the guide area we now removed her distal femoral cutting guide. We now placed our 4-in-1 femoral cutting block and positioned and it was secured with 2 pins by Julian EVERETT while I held the block in position. The distal femoral finishing was now completed. A proximal tibial cutting guide was positioned. I held the guide in the appropriate position with both hands well Julian EVERETT inserted stabilizing pins into the guide. Proximal tibial cut was made. We now placed a trial femoral component into position, along with an appropriate size tibial tray and insert. We now took the knee through range of motion and had full extension good flexion and good overall soft tissue balance noted. The patella was everted and stabilized with 2 towel clips held by Julian EVERETT while I performed a flush with patellar quad tendon utilizing a fresh sawblade. We templated the patella, appropriate drill holes were made. An appropriate trial patella was positioned, knee was taken through full range of motion with the patella tracking very nicely. The trial patella was removed. Drill holes were made through the femoral component. All trial components were removed after marking off the appropriate rotation of the tibia. Retractors were now positioned along the proximal tibia. An appropriate keel punch was made with the appropriate size tibial guide by myself on Julian EVERETT assisted by holding retractors. At this point appropriate size implants were chosen and opened. The joint was irrigated copiously with pulse lavage mechanical irrigation. The wound was irrigated with pulse lavage mechanical irrigation. We mixed antibiotic methylmethacrylate. We placed the knee into flexion. We placed multiple retractors assisted by Julian EVERETT to expose the proximal tibia. Once the methyl methacrylate was ready, the tibial component was cemented into place removing any excess methylmethacrylate form by both myself and Julian EVERETT. The femoral component was cemented into place removing the removing any excess methylmethacrylate performed by both myself and Julian VEERETT. We then inserted the appropriate size polyethylene tibial insert. We made sure that it was locked into position. We took the knee into full extension, and then back in a flexion making sure we had removed any excess methylmethacrylate. The patellar component was then cemented down and secured with clamp. Excess methylmethacrylate removed. We kept the knee in full extension, patellar clamp in position until methylmethacrylate had hardened. Once it had hardened the patellar clamp was removed. The knee was taken through full range of motion. The patella tracked nicely. There was good soft tissue balancing. The tourniquet was now released. Additional hemostasis was achieved via electrocautery. A second gram of TXA was given. The wound again was irrigated with pulse lavage mechanical irrigation. The extensor mechanism was repaired with Ethibond suture. We checked the repair with range of motion and it was stable. The subcutaneous soft tissues were repaired with Vicryl in layers. The skin was approximated with pernio/Dermabond. Sterile dressings were applied followed by loose web roll and Usama bandage. The patient was transferred to a bed, and taken to recovery in stable and satisfactory condition. Julian EVERETT assisted with this complex procedure.
--- NOTE | 2023-10-02 12:33 | XR ---
EXAMINATION TYPE: XR knee limited RT DATE OF EXAM: 10/02/2023 COMPARISON: NONE TECHNIQUE: Two views submitted HISTORY: Post op FINDINGS: There is a prosthetic knee in near anatomic alignment. There is soft tissue edema and soft tissue e mphysema. Surgical franky noted. Soft tissue calcification noted. IMPRESSION: 1. Postoperative change. Appears in near-anatomic alignment
[2023-10-02 12:42] LABS: Glucose,Whole Blood 112 mg/dL (70-110)
[2023-10-02] MEDS: HYDROcodone/APAP 7.5-325MG 1 EACH TAB PO PRN ×2 (13:58→20:02)
[2023-10-02] MEDS ORDERED: hydrALAZINE HCL 20 MG/ML 1 ML VIAL IVP ONE ×2 (14:32→15:17)
[2023-10-02] MEDS ORDERED: MIDAZOLAM 2 MG/2 ML VIAL IVP ONE ×2 (14:34→14:46)
[2023-10-02] MEDS ORDERED: MECLIZINE 12.5 MG TAB PO PRN (19:13)
[2023-10-02] MEDS ORDERED: hydrALAZINE HCL 25 MG TAB PO PRN (19:13)
[2023-10-02] MEDS ORDERED: BACLOFEN 10 MG TAB PO PRN (19:13)
[2023-10-02] MEDS ORDERED: SENNOSIDES-DOCUSATE SODIUM 1 EACH TAB PO SCH (21:00)
[2023-10-02] MEDS ORDERED: amLODIPine 5 MG TAB PO SCH (21:00)
[2023-10-02] MEDS ORDERED: PRAVASTATIN SODIUM 20 MG TAB PO SCH (21:00)
[2023-10-02] MEDS ORDERED: METOPROLOL SUCCINATE (ER) 25 MG TAB.ER.24H PO SCH (21:00)
[2023-10-02] MEDS: DICYCLOMINE 10 MG CAP PO SCH (22:13)
[2023-10-02] MEDS: ENOXAPARIN 30 MG/0.3 ML SYRINGE SQ SCH (22:15)
[2023-10-03] MEDS: HYDROcodone/APAP 7.5-325MG 1 EACH TAB PO PRN ×2 (01:23→06:38)
[2023-10-03] MEDS: LACTATED RINGERS 1,000 ML IV SCH ×2 (02:37→09:22)
[2023-10-03 07:28] VITALS: BP 151/75; PULSE 68; RESP 17; TEMP 98.7
[2023-10-03] MEDS ORDERED: PANTOPRAZOLE 40 MG TABLET PO SCH (07:30)
[2023-10-03] MEDS: DICYCLOMINE 10 MG CAP PO SCH (08:42)
[2023-10-03] MEDS: ENOXAPARIN 30 MG/0.3 ML SYRINGE SQ SCH (08:42)
[2023-10-03] MEDS ORDERED: VALSARTAN 160 MG TAB PO SCH (09:00)
[2023-10-03] MEDS ORDERED: CYANOCOBALAMIN 500 MCG TAB PO SCH (09:00)
[2023-10-03] MEDS ORDERED: amLODIPine 5 MG TAB PO SCH (09:00)
--- NOTE | 2023-10-03 10:27 | P.DS ---
Providers Date of admission: 10/02/2023 Expected date of discharge: 10/03/23 Attending physician: Stevie Caruso Consults: 10/02/23 11:50 Consult Physician Routine Consulting Provider: Kelly Silva Consult Reason/Comments: Medical management Do you want consulting provider notified?: Yes [facility] Course: Date of admission: 10/02/2023 Date of discharge: 10/03/2023 Admission diagnosis: Right knee osteoarthritis Discharge diagnosis: same Attending physician: Dr. Caruso Surgical procedures: Right total knee arthroplasty Brief history: Patient is a 72-year-old female with a history of progressive primary right knee osteoarthritis. At this point patient has failed conservative treatment measures and has opted to proceed with a elective right total knee arthroplasty. Hospital course: Details of patient's surgery can be found in operative report. Patient tolerated the procedure well and was subsequently transported to orthopedic floor. Patient's orthopeidc and medical care was provided daily. Patient had daily laboratory tests performed for evaluation of overall blood counts. Patient had daily physical therapy to include strengthening range of motion as well as education with walker ambulation. Patient was treated with lovenox for their postoperative DVT prophylaxis during their inpatient stay. Patient was noted to have a relatively uneventful postoperative course. Patient reported satisfactory pain control with oral pain medications by postoperative day 1. Patient showed satisfactory progress with physical therapy. Patient moved steadily through the program and had no difficulty meeting the goals by postoperative day 1. Given patient's otherwise satisfactory course and having met physical therapy goals, plan is to discharge patient home with health services on postoperative day 1. Discharge condition/disposition: Patient will be [facility]. Discharge medications: Instructions are given on resumption of patient's normal daily medications per primary care recommendation, in addition patient will be prescribed [place]; Zofran; senna; aspirin 81 mg twice a day 30 days. Discharge instructions: 1. Wound care and infection precautions, keep incision dry and covered while showering, no lotions, creams, moisturizers. No soaking, tubs, pools, hottubs. Do not scrub over the incision. 2. Weight-bear as tolerated with walker / cane until follow-up. 3. Ice and elevate when necessary. Do not exceed 20 minutes per hour with ice pack. 4. Utilize compression sleeve until seen at first follow up appointment. 5. Visiting nursing care. 6. Home physical therapy including home CPM. 7. Pain meds and anticoagulants per prescription. 8. Pain medication has potential to cause constipation. Increase oral fluid and fiber intake. Contact primary care provider if you have not had a bowel movement within 48 hours after discharge 9. No anti-inflammatory medication until discussed at first post operative visit, this including Motrin, Aleve, Mobic, Diclofenac. 10. Follow up in office at 2 weeks postop with Julian Duarte PA-C / Tejas Young PA-C 11. Follow up with your primary care doctor 7-10 days after discharge. 12. Contact [facility] with any questions, . Keep incision clean, dry, intact. While showering, cover silver foam dressing with Saran wrap. Keep silver foam dressing on until 10/09/2023. Once dressing is removed, it is okay to shower directly over incision. Assessment: Right knee osteoarthritis Procedures: Right total knee arthroplasty Patient Condition at Discharge: Good Plan - Discharge Summary Discharge Rx Participant: Yes New Discharge Prescriptions: No Action Ubidecarenone [Co Q-10] 200 mg PO DAILY Pravastatin Sodium [Pravachol] 20 mg PO HS Ergocalciferol (Vitamin D2) [Vitamin D2] 50,000 unit PO Q14D Cyanocobalamin (Vitamin B-12) [Vitamin B-12] 1,000 mcg PO DAILY Dicyclomine [Bentyl] 10 mg PO TID PRN PRN Reason: IBS hydrALAZINE HCL [Apresoline] 25 mg PO DIRECTED PRN PRN Reason: take if BP >150/88 Pantoprazole [Protonix] 40 mg PO DAILY Metoprolol Succinate (ER) [Toprol Xl] 25 mg PO HS Diphenoxylate HCl/Atropine [Lomotil 2.5-0.025 mg Tablet] 1 each PO DIRECTED PRN PRN Reason: IBS Baclofen 5 mg PO TID PRN PRN Reason: Muscle Spasm Theraworx TOPICAL DIRECTED PRN PRN Reason: leg cramps amLODIPine [Norvasc] 5 mg PO HS Repaglinide [Prandin] 1 mg PO DAILY Multivitamins, Thera [Multivitamin (formulary)] 1 tab PO DAILY ALPRAZolam [Xanax] 0.25 mg PO DAILY PRN PRN Reason: Anxiety rOPINIRole HCL 1 mg PO BID Valsartan [Diovan] 320 mg PO DAILY Meclizine [Antivert] 12.5 mg PO DIRECTED PRN PRN Reason: Vertigo Albuterol Inhaler [Ventolin Hfa Inhaler] 1 - 2 puff INHALATION Q6H PRN PRN Reason: Shortness Of Breath Discharge Medication List Cyanocobalamin (Vitamin B-12) [Vitamin B-12] 1,000 mcg PO DAILY 09/15/18 [History] Ergocalciferol (Vitamin D2) [Vitamin D2] 50,000 unit PO Q14D 09/15/18 [History] Pravastatin Sodium [Pravachol] 20 mg PO HS 09/15/18 [History] Ubidecarenone [Co Q-10] 200 mg PO DAILY 09/15/18 [History] ALPRAZolam [Xanax] 0.25 mg PO DAILY PRN 09/26/23 [History] Albuterol Inhaler [Ventolin Hfa Inhaler] 1 - 2 puff INHALATION Q6H PRN 09/26/23 [History] Baclofen 5 mg PO TID PRN 09/26/23 [History] Dicyclomine [Bentyl] 10 mg PO TID PRN 09/26/23 [History] Diphenoxylate HCl/Atropine [Lomotil 2.5-0.025 mg Tablet] 1 each PO DIRECTED PRN 09/26/23 [History] Meclizine [Antivert] 12.5 mg PO DIRECTED PRN 09/26/23 [History] Metoprolol Succinate (ER) [Toprol Xl] 25 mg PO HS 09/26/23 [History] Multivitamins, Thera [Multivitamin (formulary)] 1 tab PO DAILY 09/26/23 [History] Pantoprazole [Protonix] 40 mg PO DAILY 09/26/23 [History] Repaglinide [Prandin] 1 mg PO DAILY 09/26/23 [History] Theraworx TOPICAL DIRECTED PRN 09/26/23 [History] Valsartan [Diovan] 320 mg PO DAILY 09/26/23 [History] amLODIPine [Norvasc] 5 mg PO HS 09/26/23 [History] hydrALAZINE HCL [Apresoline] 25 mg PO DIRECTED PRN 09/26/23 [History] rOPINIRole HCL 1 mg PO BID 09/26/23 [History] Follow up Appointment(s)/Referral(s): [facility],Equipment [NON-STAFF] - As Needed (*Please call [facility] once home to arrange delivery of the Continuous Passive Motion (CPM) machine. ) Martínez Duarte PAC [PHYSICIAN CLERK SPECIALIST] - 10/18/23 9:30 am Patient Instructions/Handouts: Knee Replacement (DC), Knee Replacement (GEN) Activity/Diet/Wound Care/Special Instructions: Discharge instructions: 1. Wound care and infection precautions, keep incision dry and covered while showering, no lotions, creams, moisturizers. No soaking, tubs, pools, hottubs. Do not scrub over the incision. 2. Weight-bear as tolerated with walker / cane until follow-up. 3. Ice and elevate when necessary. Do not exceed 20 minutes per hour with ice pack. 4. Utilize compression sleeve until seen at first follow up appointment. 5. Visiting nursing care. 6. Home physical therapy including home CPM. 7. Pain meds and anticoagulants per prescription. 8. Pain medication has potential to cause constipation. Increase oral fluid and fiber intake. Contact primary care provider if you have not had a bowel movement within 48 hours after discharge 9. No anti-inflammatory medication until discussed at first post operative visit, this including Motrin, Aleve, Mobic, Diclofenac. 10. Follow up in office at 2 weeks postop with Julian Duarte PA-C / Tejas Young PA-C 11. Follow up with your primary care doctor 7-10 days after discharge. 12. Contact [facility] with any questions, . Keep incision clean, dry, intact. While showering, cover silver foam dressing with Saran wrap. Keep silver foam dressing on until 10/09/2023. Once dressing is removed, it is okay to shower directly over incision. Discharge Disposition: HOME WITH HOME HEALTH SERVICES
--- NOTE | 2023-10-03 10:30 | P.PN ---
Subjective Progress Note Date: 10/03/23 Principal diagnosis: Right knee osteoarthritis Patient was seen at bedside this morning sitting up at the edge of the bed with daughter present at bedside during counter. Patient says she just finished walking to the bathroom. Patient says she did do well with therapy this morning and walked down the ferro and up-and-down stairs. Patient says she is looking forward to going home later today. Patient says she does have a walker at home. Patient says her daughter will be staying with her at home. Patient says she has urinated several times since surgery yesterday. Patient says pain is controlled with medication. Patient denies chest pain, fever, shortness breath, nausea, vomiting, change in vision, loss of bowel/bladder control. Objective - Vital Signs Vital signs: Vital Signs Temp 98.7 F 10/03/23 07:08 Pulse 68 10/03/23 07:08 Resp 17 10/03/23 07:08 BP 151/75 10/03/23 07:08 Pulse Ox 95 10/03/23 07:08 FiO2 Intake & Output 10/02/23 10/03/23 10/03/23 18:59 06:59 18:59 Intake Total 3051 1300 Output Total 45 Balance 3006 1300 Weight 105.8 kg Intake: IV 3051 Intake, IV Titration 1060 Amount Lactated Ringers 1,000 ml 960 @ 80 mls/hr IV .[id number] [facility] Rx#:[id number] ceFAZolin 2 gm In Sodium 100 Chloride 0.9% 50 ml @ 100 mls/hr IVPB Q8H ANTOINETTE Rx#: [id number] Oral 240 Output: Estimated Blood Loss 45 Other: # Voids 2 - Exam Right knee: Incision is clean, dry, and intact. The silver foam dressing is in good condition. There is minimal soft tissue swelling and ecchymosis surrounding the medial and lateral aspects of the incision. Calf is soft, no tenderness with palpation. Plantar flexion, dorsiflexion, EHL, FHL are intact. Sensory exam to light touch throughout the extremity is intact, dorsal pedis pulses 2+. - Labs Labs: Abnormal Lab Results - Last 24 Hours (Table) 10/02/23 Range/Units 12:40 POC Glucose (mg/dL) 112 H (70-110) mg/dL Assessment and Plan Assessment: 1. Right knee osteoarthritis - Postop day #1 status post right total knee arthroplasty Plan: 1. Right knee osteoarthritis - right total knee arthroplasty performed yesterday, 10/02/2023. Patient stable at bedside this morning. Patient did do well with therapy this morning. Patient does have a walker for home. Discharge home today with health services. 2. Appreciate medical management 3. Pain management - [place] 4. DVT prophylaxis - Lovenox in hospital. Going home with aspirin 81 mg twice a day 30 days 5. GI prophylaxis - senna 6. PT/OT - weightbearing as tolerated with walker 7. Encourage incentive spirometer use 8. Discharge planning - home today with health services Time with Patient: Less than 30
[2023-10-03 10:48] LABS: Basophils # (A) 0.02 X 10*3/uL (0.00-0.10); Basophils % (A) 0.2 %; Eosinophils # (A) 0.01 X 10*3/uL (0.04-0.35); Eosinophils % (A) 0.1 %; HCT 33.9 % (37.2-46.3); HGB 10.6 g/dL (12.0-15.0); Lymphocytes # (A) 1.19 X 10*3/uL (0.90-5.00); Lymphocytes % (A) 11.3 %; MCH 27.2 pg (27.0-32.0); MCHC 31.3 g/dL (32.0-37.0); MCV 87.1 FL (80.0-97.0); Mean Platelet Volume 12.4 FL (9.5-12.2); Monocytes # (A) 0.99 X 10*3/uL (0.20-1.00); Monocytes % (A) 9.4 %; NRBC Per 100 WBC 0 X 10*3/uL (0.00-0.01); Neutrophils # (A) 8.22 X 10*3/uL (1.80-7.70); Neutrophils % (A) 78.3 %; Platelet Count 250 X 10*3/uL (140-440); RBC 3.89 X 10*6/uL (4.10-5.20)
--- NOTE | 2023-10-03 11:36 | P.PN ---
Progress Note - Text 10/03/23 612am 72-year-old female status post total knee replacement by Dr. Monroe. Patient has an On-Q pump for postop pain control with the solution running at 8 mL an hour with a VAS of 4, dressing clean dry and intact. Plan to continue On-Q pump infusion
[2023-10-03 11:47] LABS: Glucose,Whole Blood 120 mg/dL (70-110)
[2023-10-03] MEDS ORDERED: MULTIVITAMINS, THERA 1 EACH TAB PO SCH (12:00)
--- NOTE | 2023-10-03 13:21 | P.CONS ---
History of Present Illness - Reason for Consult Leukocytosis - History of Present Illness Patient is admitted for right knee arthroplasty post surgery patient is clinically doing well passing gas patient pain is well-controlled will be discharged today. Patient had leukocytosis thought any evidence of infection at this time REVIEW OF SYSTEMS: CONSTITUTIONAL: No fever, no malaise, no fatigue. HEENT: No recent visual problems or hearing problems. Denied any sore throat. CARDIOVASCULAR: No chest pain, orthopnea, PND, no palpitations, no syncope. PULMONARY: No shortness of breath, no cough, no hemoptysis. GASTROINTESTINAL: No diarrhea, no nausea, no vomiting, no abdominal pain. NEUROLOGICAL: No headaches, no weakness, no numbness. HEMATOLOGICAL: Denies any bleeding or petechiae. GENITOURINARY: Denies any burning micturition, frequency, or urgency. MUSCULOSKELETAL/RHEUMATOLOGICAL: Denies any joint pain, swelling, or any muscle pain. ENDOCRINE: Denies any polyuria or polydipsia. The rest of the 14-point review of systems is negative. PHYSICAL EXAMINATION: GENERAL: The patient is alert and oriented x3, not in any acute distress. Well developed, well nourished. HEENT: Pupils are round and equally reacting to light. EOMI. No scleral icterus. No conjunctival pallor. Normocephalic, atraumatic. No pharyngeal erythema. No thyromegaly. CARDIOVASCULAR: S1 and S2 present. No murmurs, rubs, or gallops. PULMONARY: Chest is clear to auscultation, no wheezing or crackles. ABDOMEN: Soft, nontender, nondistended, normoactive bowel sounds. No palpable organomegaly. MUSCULOSKELETAL: No joint swelling or deformity. Post surgically packed knee EXTREMITIES: No cyanosis, clubbing, or pedal edema. NEUROLOGICAL: Gross neurological examination did not reveal any focal deficits. SKIN: No rashes. Assessment and plan -leukocytosis reactive without any peripheral 7 infection no further testing is necessary patient will be asked to use incentive spirometry -Right knee arthroplasty patient is being discharged on aspirin twice if they for DVT prophylaxis -Hypertension patient can be resumed on home medications of Norvasc hydralazine valsartan starting tomorrow patient blood pressure is slightly elevated today -Hyperlipidemia -Type 2 diabetes mellitus patient will be resumed on home regimen -Hypertension -Asthma without any acute exacerbation DVT prophylaxis: Past Medical History Past Medical History: Asthma, Diabetes Mellitus, GERD/Reflux, Hyperlipidemia, Hypertension, Musculoskeletal Disorder, Osteoarthritis (OA) Additional Past Medical History / Comment(s): RLS, IBS, past hx. vertigo, hiatal hernia, cyst on kidney- monitoring, kidney stones History of Any Multi-Drug Resistant Organisms: None Reported Past Surgical History: Cholecystectomy, Joint Replacement Additional Past Surgical History / Comment(s): left knee replaced, left eye surgery, cystoscopy w/lithotripsy Past Anesthesia/Blood Transfusion Reactions: Motion Sickness, Postoperative Nausea & Vomiting (PONV) Past Psychological History: Anxiety Smoking Status: Never smoker Past Alcohol Use History: Rare Past Drug Use History: None Reported - Past Family History Mother Family Medical History: No Reported History Medications and Allergies Home Medications Medication Instructions Recorded Confirmed Type Cyanocobalamin (Vitamin B-12) 1,000 mcg PO DAILY 09/15/18 09/26/23 History [Vitamin B-12] Ergocalciferol (Vitamin D2) 50,000 unit PO Q14D 09/15/18 09/26/23 History [Vitamin D2] Pravastatin Sodium [Pravachol] 20 mg PO HS 09/15/18 09/26/23 History Ubidecarenone [Co Q-10] 200 mg PO DAILY 09/15/18 09/26/23 History ALPRAZolam [Xanax] 0.25 mg PO DAILY PRN 09/26/23 09/26/23 History Albuterol Inhaler [Ventolin Hfa 1 - 2 puff INHALATION Q6H PRN 09/26/23 09/26/23 History Inhaler] Baclofen 5 mg PO TID PRN 09/26/23 09/26/23 History Dicyclomine [Bentyl] 10 mg PO TID PRN 09/26/23 09/26/23 History Diphenoxylate HCl/Atropine 1 each PO DIRECTED PRN 09/26/23 09/26/23 History [Lomotil 2.5-0.025 mg Tablet] Meclizine [Antivert] 12.5 mg PO DIRECTED PRN 09/26/23 09/26/23 History Metoprolol Succinate (ER) [Toprol 25 mg PO HS 09/26/23 09/26/23 History Xl] Multivitamins, Thera [Multivitamin 1 tab PO DAILY 09/26/23 09/26/23 History (formulary)] Pantoprazole [Protonix] 40 mg PO DAILY 09/26/23 09/26/23 History Repaglinide [Prandin] 1 mg PO DAILY 09/26/23 09/26/23 History Theraworx TOPICAL DIRECTED PRN 09/26/23 History Valsartan [Diovan] 320 mg PO DAILY 09/26/23 09/26/23 History amLODIPine [Norvasc] 5 mg PO HS 09/26/23 09/26/23 History hydrALAZINE HCL [Apresoline] 25 mg PO DIRECTED PRN 09/26/23 09/26/23 History rOPINIRole HCL 1 mg PO BID 09/26/23 09/26/23 History Aspirin [Adult Low Dose Aspirin EC] 81 mg PO BID #60 tab 10/03/23 Rx HYDROcodone/APAP 7.5-325MG [[place] 1 - 2 tab PO Q6HR PRN #36 tab 10/03/23 Rx 7.5-325] Ondansetron [Zofran] 4 mg PO Q8HR PRN #12 tab 10/03/23 Rx Sennosides/Docusate Sodium [Senna 1 each PO DAILY #20 capsule 10/03/23 Rx Plus 8.6-50 mg Softgel] Allergies Allergy/AdvReac Type Severity Reaction Status Date / Time No Known Allergies Allergy Verified 10/02/23 08:47 Physical Exam Vitals: Vital Signs Temp Pulse Resp BP Pulse Ox 10/03/23 07:08 98.7 F 68 17 151/75 95 10/03/23 01:02 98.0 F 67 18 151/72 99 10/02/23 18:55 97.6 F 70 16 148/70 99 10/02/23 17:35 76 16 147/65 99 10/02/23 17:05 67 16 146/66 97 10/02/23 16:35 69 14 142/65 98 10/02/23 16:05 82 14 144/63 99 10/02/23 15:35 61 14 136/62 99 10/02/23 15:20 65 18 152/64 98 10/02/23 14:50 66 16 177/75 98 10/02/23 14:20 65 12 191/76 98 10/02/23 14:05 68 16 184/77 100 10/02/23 13:35 58 L 16 164/64 99 Intake and Output 10/02/23 10/03/23 10/03/23 22:59 06:59 14:59 Intake Total 1300 Balance 1300 Intake: Intake, IV Titration 1060 Amount Lactated Ringers 1,000 ml 960 @ 80 mls/hr IV .[id number] ANTO[facility] Rx#:[id number] ceFAZolin 2 gm In Sodium 100 Chloride 0.9% 50 ml @ 100 mls/hr IVPB Q8H ANTO[facility] Rx#: [id number] Oral 240 Other: # Voids 2 1 Weight 105.8 kg Results CBC & Chem 7: 10/03/23 07:23 Labs: Abnormal Lab Results - Last 24 Hours (Table) 10/03/23 10/03/23 Range/Units 07:23 11:45 WBC 10.50 H (4.50-10.00) X 10*3/uL RBC 3.89 L (4.10-5.20) X 10*6/uL Hgb 10.6 L (12.0-15.0) g/dL Hct 33.9 L (37.2-46.3) % MCHC 31.3 L (32.0-37.0) g/dL MPV 12.4 H (9.5-12.2) FL Immature Gran # 0.07 H (0.00-0.04) X 10*3/uL Neutrophils # 8.22 H (1.80-7.70) X 10*3/uL Eosinophils # 0.01 L (0.04-0.35) X 10*3/uL POC Glucose (mg/dL) 120 H (70-110) mg/dL
== END 2023-10-03 13:20 | disposition home health service (06) ==
LOC: OR 08:15 → 4SSUR 11:56 → OR 10-03 13:20
PROVIDERS: ATTEND Orthopaedic Surgery
DX: M17.11 Unilateral primary osteoarthritis, right knee (principal); G89.18 Other acute postprocedural pain; J45.909 Unspecified asthma, uncomplicated; E78.5 Hyperlipidemia, unspecified; I10 Essential (primary) hypertension; Z96.652 Presence of left artificial knee joint; Z90.49 Acquired absence of other specified parts of digestive tract; Z91.048 Other nonmedicinal substance allergy status
CPT/HCPCS: 27447; 97161; 64999; 64448; 85025; 73560; C1776; C1713 ×2; C1751; J2250; J0360; J1100; J0690 ×3; J2405; J3010; J1650 ×2; J2795; J1170

== ENCOUNTER → 2024-07-31 | Outpatient (CLI) | payer MEDICARE ==
--- NOTE | 2024-07-31 15:54 | US ---
EXAMINATION TYPE: US kidneys/renal and bladder DATE OF EXAM: 07/31/2024 COMPARISON: 06/13/2023 CLINICAL INDICATION: Female, 73 years old with history of N28.1 CYST OF KIDNEY, ACQUIRED; Patient den ies any signs, symptoms, or relevant history TECHNIQUE: Grayscale imaging of the bilateral kidneys and urinary bladder: FINDINGS: EXAM MEASUREMENTS: Right Kidney: 13.2 x 4.2 x 4.2 cm Left Kidney: 11.6 x 5.2 x 5.0 cm Post Void Residual Volume: NA mL Right Kidney: Anechoic structure redemonstrated = 8.8 x 6.6 x 8.2 cm Left Kidney: WNL Bladder: Not distended Bilateral Jets seen: Not able to assess Normal Post Void Residual: Not able to assess IMPRESSION: Right renal minimally complex cyst. Similar sized from 06/13/2023 given differences in measuring techn ique. Consider MRI renal mass protocol if not moderately performed. [facility], , 07/31/2024 3:52 PM
== END | disposition home or self-care (01) ==
LOC: RADUSWWP 15:27
PROVIDERS: ATTEND Internal Medicine Geriatric Medicine
DX: N28.1 Cyst of kidney, acquired (principal)
CPT/HCPCS: 76770

== ENCOUNTER → 2024-08-13 | Outpatient (CLI) | payer MEDICARE ==
--- NOTE | 2024-08-14 07:58 | MM ---
Reason for Exam: Screening (asymptomatic). Last mammogram was performed 1 year(s) and 2 month(s) ago. Patient History: Menarche at age 11. First Full-Term at age 19. Postmenopausal. Estrogen for 11 years from age 39 until age 50. Progesterone for 11 years from age 39 until age 50. Patient used Hormonal Contraceptives for 20 years. Risk Values: Marisela 5 year model risk: 1.6%. NCI Lifetime model risk: 3.4%. Prior Study Comparison: 11/16/2020 Bilateral Screening Mammogram, [facility]. 12/31/2021 Bilateral Screening Mammogram, [facility]. 06/06/2023 Bilateral MG 3D screening mammo w/cad, [facility]. Tissue Density: There are scattered areas of fibroglandular density. Findings: Analyzed By CAD. There is no suspicious group of microcalcifications or new suspicious mass in either breast. Benign-appearing calcifications. 2 mm chronic nodularity outer margin right breast stable relative to multiple prior exams. Overall Assessment: Benign, BI-RAD 2 Management: Screening Mammogram of both breasts in 1 year. . Patient should continue monthly self-breast exams. A clinical breast exam by your physician is recommended on an annual basis. This exam should not preclude additional follow-up of suspicious palpable abnormalities. Note on Marisela scores and lifetime risk: 1. A Marisela score greater than 3% is considered moderate risk. If this is the case, consider specialist referral to assess eligibility for a risk reducing agent. 2. If overall lifetime risk for the development of breast cancer is 20% or higher, the patient may qualify for future screening with alternating mammogram and breast MRI. [facility], , 08/14/2024 7:55 AM. Electronically signed and approved by: Chet Monroy M.D. Radiologis
== END | disposition home or self-care (01) ==
LOC: RADMAMWWP 15:10
PROVIDERS: ATTEND Internal Medicine Geriatric Medicine
DX: Z12.31 Encounter for screening mammogram for malignant neoplasm of breast (principal); Z78.0 Asymptomatic menopausal state; R92.323 Mammographic fibroglandular density, bilateral breasts
CPT/HCPCS: 77063; 77067

== ENCOUNTER → 2024-09-25 | Outpatient (CLI) | payer MEDICARE ==
--- NOTE | 2024-09-25 11:41 | MR ---
EXAMINATION TYPE: MR kidney wo/w con DATE OF EXAM: 09/25/2024 10:14 AM COMPARISON: CT 09/15/2018 CLINICAL INDICATION: Female, 73 years old with history of N28.1 CYST OF KIDNEY, ACQUIRED, Renal cyst, abnormal US., TECHNIQUE: Multiplanar, multisequence images of the were obtained before and after administration of 10 mL intravenous Gadobutrol gadolinium contrast. IV Contrast: 10 cc Gadobutrol (None if empty) FINDINGS: Heart normal size without pericardial effusion. No pleural effusion. There is a small hiatal hernia present. Liver enlarged at 20.1 cm with mild fatty infiltration given some loss of signal on out of phase T1-w eighted sequence. Otherwise, no focal liver lesion or biliary ductal dilatation. Portal venous system is patent. Gallbladder surgically absent. Large right lower pole renal cyst measures 8.7 cm on coronal series. No abnormal internal enhancement . There is a single thin internal septation along the anterior margin on axial T2 images. No other in ternal complexity or enhancement is seen. A couple additional tiny benign cysts in the right kidney measure up to 7 mm. A couple tiny parapelvi c cysts left kidney measure 6 mm. Otherwise, symmetric uptake and excretion of contrast in both kidne ys. Slight thickening of the left adrenal gland without discrete nodularity. There is a uniformly enhancing rounded nodule of the right adrenal gland measuring 1.9 cm. This shows signal loss on out of phase T1-weighted sequence suggesting a lipid rich adrenal adenoma. Prominent but nonenlarged portacaval lymph node measuring 1.1 cm. Prominent michael hepatic lymph node measuring 9 mm. Otherwise, no upper abdominal lymphadenopathy, ascites fluid, or bowel abnormality is seen. The spleen and pancreas show no gross abnormality. IMPRESSION: 1. MRI demonstrates a benign 8.7 cm cyst of the right kidney. There is only minimal internal complexi ty with a single thin internal septation. No suspicious nodularity or enhancement is seen. 2. Small hiatal hernia. 3. Hepatomegaly at 21.1 cm with mild hepatic steatosis. 4. A 1.9 cm lipid rich right adrenal adenoma. [facility], Workstation: [id number], 09/25/2024 11:38 AM
== END | disposition home or self-care (01) ==
LOC: RADMRIMAIN 08:40
PROVIDERS: ATTEND Internal Medicine Geriatric Medicine
DX: D35.01 Benign neoplasm of right adrenal gland (principal); K44.9 Diaphragmatic hernia without obstruction or gangrene; K76.0 Fatty (change of) liver, not elsewhere classified; N28.1 Cyst of kidney, acquired; R16.0 Hepatomegaly, not elsewhere classified
CPT/HCPCS: 74183; A9585

== ENCOUNTER → 2024-12-02 | Outpatient (CLI) | payer MEDICARE ==
--- NOTE | 2024-12-02 13:31 | XR ---
EXAMINATION TYPE: XR Hip Complete LT DATE OF EXAM: 12/02/2024 1:26 PM COMPARISON: None CLINICAL INDICATION: Female, 74 years old with history of M25.561 R KNEE PAIN, M54.9 DORSALGIA; PHH, pain TECHNIQUE: XR Hip Complete LT; Frontal and lateral views FINDINGS: No evidence for acute process, joint dislocation or significant soft tissue swelling. Osteo phyte formation of the superior acetabulum of the hip. There is severe joint space narrowing with bon e-on-bone articulation and subchondral sclerosis. Atherosclerosis of the arteriovascular with pelvic phleboliths. IMPRESSION: 1. No evidence for acute process. 2. Severe hip osteoarthrosis. [facility], , 12/02/2024 1:29 PM
--- NOTE | 2024-12-02 13:32 | XR ---
EXAMINATION TYPE: XR lumbar spine 2 or 3V DATE OF EXAM: 12/02/2024 1:26 PM COMPARISON: None CLINICAL INDICATION: Female, 74 years old with history of M25.561 R KNEE PAIN, M54.9 DORSALGIA; PHH, pain TECHNIQUE: XR lumbar spine 2 or 3V - Frontal, lateral and coned in L5-S1 lateral views of the spine. FINDINGS: No evidence of any acute osseous pathology. No evidence of loss of vertebral body height i s seen. There is normal alignment of the lumbar vertebral bodies. Scattered disc space narrowing. Mul tilevel marginal osteophyte formation throughout the visualized spine. There is facet joint arthropat hy throughout the spine. Scattered at least mild neural foraminal stenosis with more moderate at L5-S 1. Atherosclerosis of the arterial vasculature. IMPRESSION: 1. No acute fracture. 2. Moderate multilevel disc degeneration. [facility], , 12/02/2024 1:30 PM
== END | disposition home or self-care (01) ==
LOC: RADXRMAIN 12:58
PROVIDERS: ATTEND Internal Medicine Geriatric Medicine
DX: M17.12 Unilateral primary osteoarthritis, left knee (principal); M51.360 Other intervertebral disc degeneration, lumbar region with discogenic back pain only
CPT/HCPCS: 72100; 73502

== ENCOUNTER → 2025-03-19 | Outpatient (CLI) | payer MEDICARE ==
[2025-03-19 16:00] LABS: INR 0.9 (<1.2); Partial Thromboplastin Time 25.2 sec (22.0-30.0); Prothrombin Time 10.6 sec (10.0-12.5)
[2025-03-19 18:35] LABS: HCT 36.1 % (37.2-46.3); HGB 11.0 g/dL (12.0-15.0); MCH 26.9 pg (27.0-32.0); MCHC 30.5 g/dL (32.0-37.0); MCV 88.3 FL (80.0-97.0); NRBC Per 100 WBC 0 X 10*3/uL (0.00-0.01); Platelet Count 256 X 10*3/uL (140-440); RBC 4.09 X 10*6/uL (4.10-5.20); RDW 14.4 % (11.5-14.5); WBC 8.56 X 10*3/uL (4.50-10.00)
[2025-03-19 18:50] LABS: BUN/Creat Ratio 22.60 Ratio (12.00-20.00); Blood Urea Nitrogen 22.6 mg/dL (9.0-27.0); Glucose 173 mg/dL (70-110)
[2025-03-19 18:51] LABS: ALT 16 U/L (8-44); AST 20 U/L (13-35); Albumin 4.0 g/dL (3.8-4.9); Albumin/Globulin Ratio 1.33 Ratio (1.60-3.17); Alkaline Phosphatase 86 U/L (41-126); Anion Gap 11.50 mmol/L (4.00-12.00); Calcium 9.7 mg/dL (8.7-10.3); Carbon Dioxide 22.5 mmol/L (21.6-31.8); Chloride 107 mmol/L (96-109); Globulin 3.0 g/dL (1.6-3.3); Potassium 3.9 mmol/L (3.5-5.5); Sodium 141 mmol/L (135-145); Total Protein 7.0 g/dL (6.2-8.2)
== END | disposition home or self-care (01) ==
LOC: LABWHC1 15:18
PROVIDERS: ATTEND Orthopaedic Surgery
DX: Z01.812 Encounter for preprocedural laboratory examination (principal); E11.9 Type 2 diabetes mellitus without complications; M16.12 Unilateral primary osteoarthritis, left hip; Z22.322 Carrier or suspected carrier of Methicillin resistant Staphylococcus aureus
CPT/HCPCS: 80053; 83036; 85027; 85610; 85730; 86850; 86900; 86901; 87070

== ENCOUNTER 2025-03-26 11:08 | Day surgery (SDC) | payer MEDICARE ==
[~2025-03-26 11:08] MED LIST changes: -ACETAMINOPHEN TAB 500 MG TAB PO PRN; -DEXAMETHASONE SOD PHOSPHATE 4 MG/ML 1 ML VIAL IV ONE; +DOCUSATE 100 MG CAP PO PRN; -LIDOCAINE 1% (10MG/ML) FOR IV START INTRADERMA PRN; -MELOXICAM 7.5 MG TAB PO PRN; -MIDAZOLAM 2 MG/2 ML VIAL IV PRN; -ONDANSETRON 4 MG/2 ML VIAL IVP ONE; +TRANEXAMIC 1,000 MG/100ML-NACL 1,000 MG in SALINE 1 100ML.BAG IV PRN; -fentaNYL (PF) 50 MCG/ML 2 ML AMP IVP PRN
[2025-03-26] MEDS: IV FLUID CONTINUATION 1,000 ML IV ONE (11:51)
[2025-03-26 12:27] LABS: Glucose,Whole Blood 108 mg/dL (70-110)
[2025-03-26] MEDS: LACTATED RINGERS 1,000 ML IV SCH (12:30)
[2025-03-26] MEDS: oxyCODONE ER 10 MG TAB.ER.12H PO PRN (12:31)
[2025-03-26] MEDS: DEXAMETHASONE SOD PHOSPHATE 10 MG/ML 1 ML VIAL IV PRN (12:31)
[2025-03-26] MEDS: ACETAMINOPHEN TAB 500 MG TAB PO PRN (12:31)
[2025-03-26] MEDS: FAMOTIDINE 20 MG/2 ML VIAL IVP PRN (12:32)
[2025-03-26] MEDS: KETOROLAC 15 MG/ML 1 ML VIAL IVP PRN (12:32)
[2025-03-26] MEDS: ONDANSETRON 4 MG/2 ML VIAL IVP PRN (12:32)
[2025-03-26] MEDS: MIDAZOLAM 2 MG/2 ML VIAL IV ONE (12:35)
[2025-03-26] MEDS: fentaNYL (PF) 50 MCG/ML 2 ML AMP IVP STA (12:35)
[2025-03-26] MEDS ORDERED: TRANEXAMIC 1,000 MG/100ML-NACL PREMIX BAG ONE (12:40)
[2025-03-26] MEDS ORDERED: HYDROmorphone (PF) 1 MG/ML ONE (12:40)
[2025-03-26] MEDS ORDERED: ROCURONIUM 10 MG/ML (5 ML VIAL) IV ONE (12:40)
[2025-03-26] MEDS ORDERED: GLYCOPYRROLATE 0.2 MG/ML 2 ML VIAL ONE (12:40)
[2025-03-26] MEDS ORDERED: fentaNYL (PF) 50 MCG/ML 2 ML AMP ONE (12:40)
[2025-03-26] MEDS ORDERED: NEOSTIGMINE 1 MG/ML 10 ML VIAL ONE (12:40)
[2025-03-26] MEDS ORDERED: DEXAMETHASONE SOD PHOSPHATE 4 MG/ML 1 ML VIAL ONE (12:40)
[2025-03-26] MEDS ORDERED: LIDOCAINE 1% INJ 10MG/ML (20 ML MDV) ONE (12:40)
[2025-03-26] MEDS ORDERED: SUCCINYLCHOLINE CHLORIDE 200 MG/10 ML VIAL IV ONE (12:40)
[2025-03-26] MEDS ORDERED: PROPOFOL 10 MG/ML 20 ML VIAL IV ONE (12:40)
[2025-03-26] MEDS ORDERED: ROPIVACAINE 5 MG/ML 30 ML VIAL ONE (12:40)
[2025-03-26] MEDS: ROPIVACAINE/EPI/CLONIDINE/KET 50 ML SYRINGE MISCELLANE PRN (12:42)
--- NOTE | 2025-03-26 14:04 | P.ANPRN ---
Procedure Note - Anesthesia - Nerve Block Performed Left [place] Single Time Out Performed: Yes ([id number]) Date of Procedure: 03/26/25 Procedure Start Time: 12:35 Procedure Stop Time: 12:39 Location of Patient: PreOp Indication: Acute Post-Operative Pain, Requested by Surgeon Specifically requested for management of pain by DrBrii: Juaquin Lazaro Sedation Type: Sedate with meaningful contact maintained Preparation: Sterile Prep Position: Supine Catheter: None Needle Types: Pajunk Needle Gauge: 21 Ultrasound used to visualize needle placement: Yes Ultrasound used to observe medication spread: Yes Injectate: 0.5% Ropivacaine (see comment for volume) (30cc+decadron 4mg) Blood Aspirated: No Pain Paresthesia on Injection Noted: No Resistance on Injection: Normal Image Stored and Saved: Yes Events: Uneventful and Well Tolerated
[2025-03-26] MEDS ORDERED: HYDROmorphone 0.5 MG/0.5 ML SYRINGE IVP PRN ×2 (14:39)
[2025-03-26] MEDS ORDERED: TEMAZEPAM 15 MG CAP PO PRN (14:39)
[2025-03-26] MEDS ORDERED: diazePAM 5 MG TAB PO PRN (14:39)
[2025-03-26] MEDS ORDERED: MAGNESIUM HYDROXIDE 2,400 MG/30 ML CUP PO PRN (14:39)
[2025-03-26] MEDS ORDERED: NALOXONE 0.4 MG/ML 1 ML VIAL IV PRN (14:39)
[2025-03-26] MEDS ORDERED: ONDANSETRON 4 MG/2 ML VIAL IVP PRN (14:39)
--- NOTE | 2025-03-26 14:39 | P.OP ---
Date of Procedure: 03/26/25 Preoperative Diagnosis: 1. Severe left hip osteoarthritis 2. BMI 37.7 Postoperative Diagnosis: Same Procedure(s) Performed: 1. Left direct anterior total hip arthroplasty 2. Application of negative pressure incisional wound VAC, left hip, DME, less than 50 cm Implants: 1. [place] Trident II Acetabular Cup, Size #52 2. [place] Accolade C Size #4 Femoral Stem, Standard Offset 3. Biolox delta femoral head, 36 mm, - 5 mm neck Anesthesia: CRISTINO, regional Surgeon: Juaquin Lazaro Fusion Operator #1: Chicho Melendrez Estimated Blood Loss (ml): 300 IV fluids (ml): 800 Pathology: none sent Condition: stable Disposition: PACU Indications for Procedure: I had a long discussion with the patient in the office on the potential risks and complications of an elective total hip replacement through a direct anterior approach. Risks discussed include, but are certainly not limited to, risks from anesthesia, superficial infection requiring local wound care or antibiotics, deep santana-prosthetic joint infection and the treatment required to eradicate infection, intraoperative fracture, postoperative periprosthetic fracture, damage to local blood vessels or nerves particularly the lateral femoral cutaneous nerve, delayed wound healing requiring local wound care or possibly surgical debridement, hip dislocation, leg length discrepancy, soft tissue irritation around the total hip implant such as iliopsoas tendinitis or trochanteric bursitis, wear and osteolysis from the implants, squeaking or audible noises, groin pain, thigh pain, heterotopic ossification, stiffness, aseptic loosening of the implants, dissatisfaction with surgical outcome, need for revision surgery, DVT, PE, swelling of the operative extremity, acute coronary event, stroke, failure to thrive, and possibly loss of life or limb. The patient understands that while these are the most common complications after an elective hip replacement there are certainly other less common complications possible. They were given ample time to ask questions regarding the potential complications of a hip replacement. Following our discussion the patient provided their verbal and written consent to go forward with an elective total hip replacement. Operative Findings: Severe left hip osteoarthritis. The patient had relatively poor proximal femoral bone quality so I elected to use cemented femoral fixation. Description of Procedure: The patient was identified in the preoperative holding area and the correct hip was marked with my initials. I reviewed the procedure and consent with the patient. All of their questions were answered. The patient was then brought back into the operating room by anesthesia. While on the [facility] anesthesia was administered by the anesthesia team. Preoperative antibiotics and tranexamic acid were also given. After the patient was under anesthesia I examined their ankles to determine their preoperative leg length discrepancy. The skin over the anterior aspect of the hip was shaved to remove hair over the site of planned incision. Both feet and ankles were padded with webril and boots for the [place] were applied. The patient was then carefully transferred onto the [place] table. A perineal post was immediately placed. The arms were placed on arm holders and were well-padded. Both boots were secured to the spars on the [place] table. The patient was positioned so that the pelvis was centered over the post. Nonsterile drapes were applied. A timeout was performed identifying the correct patient, operative extremity, and procedure. At this point fluoroscopy was brought in to take preoperative images of the pelvis and operative hip. Using the standing AP pelvis from the office as a template, a comparable image was obtained with fluoroscopy. A metallic bar was used to create a bi-ischial line for use as a reference to leg length adjustments during the procedure. Global offset was also measured on both the operative and nonoperative leg. Fluoroscopy was then brought out and a pre-scrub using a chlorhexidine scrub brush was performed. The operative limb was then prepped and draped in the standard sterile fashion. An anterior longitudinal incision was made lateral and distal to the ASIS. The skin and subcutaneous tissues were incised sharply. The underlying tensor fascia was identified and incised in its midportion. The fascia was dissected free from the underlying muscle and the muscle belly was retracted. A blunt tipped cobra retractor was placed over the superior neck under the muscle fibers of the gluteus minimus. The deep enveloping fascia of the tensor was incised. The anterior leash of vessels were then identified and cauterized. The fascia between the rectus and the capsule was then incised and the pre-capsular fat was excised. A second Cobra was placed inferior to the neck. The interval between the rectus and iliocapsularis and the hip capsule was developed and a retractor was placed carefully over the anterior rim of the acetabulum. A T-shaped anterior capsulotomy was performed. The superior capsular leaflet was left in place in the inferior capsular flap was excised. The Cobra retractors were placed intracapsularly. We then made a femoral neck osteotomy according to preoperative and intraoperative templating and confirmed the level of the osteotomy using fluoroscopic imaging. The femoral head was removed, passed off to the back table, and sized. The superior capsular flap was excised. Retractors were placed circumferentially exposing the acetabulum. We then circumferentially debrided the acetabulum free of labrum and osteophytes. The pulvinar was removed to fully visualize the cotyloid fossa. We then sequentially reamed to achieve peripheral fit and excellent bleeding subchondral bone. The socket was thoroughly irrigated. The acetabular component was impacted into the appropriate position using fluoroscopy to guide version, inclination, and depth of insertion taking care to have a comparable image of the AP pelvis to the standing image taken in the office. An excellent press-fit was achieved and final position was confirmed using fluoroscopy. The press fit was augmented with bony cancellus dome screws. The liner was then impacted into the socket. Attention was then turned to the femur. The remnant dorsal lateral capsule was excised. The short external rotators were visible and protected. A bone hook was used to confirm appropriate translation of the trochanter away from the acetabulum. The leg was then extended and adducted and the bone hook was used to elevate the femur for broaching. On inspection of the patient's proximal femur, they appeared to have poor bone quality so I elected to proceed with cemented fixation of the femoral component. A box osteotome and blunt tipped canal sound was then utilized to gain access to the femoral canal. We then sequentially broached the femur in appropriate anteversion until torsional stability was achieved and the implant was felt to have reached the appropriate size to allow trialing. The neck cut was brought flush to the trial broach with a calcar planar. A trial neck and head were then placed onto the broach and the hip was atraumatically reduced under direct visualization. External rotation to 90 was performed to assess stability. Fluoroscopy was brought in. An AP and lateral fluoroscopic image of the proximal femur was obtained to assess position and fill of the trial broach. An AP of the pelvis was then obtained and matched to the preoperative image taken. A bi-ischial bar was then placed and measurements were taken to assess changes in length and offset. The hip was then carefully dislocated, the proximal femur was exposed, and the trial implants were removed. The proximal femur was then prepared for cementing. The canal was thoroughly irrigated with pulsatile lavage to remove blood and marrow contents. A cement restrictor was placed to a depth just distal to the tip of the final implant. Epinephrine-soaked gauze was then packed into the proximal femur. 2 bags of cement were then mixed using a centrifuge and placed into a cement gun. Anesthesia was notified that cementing was about to commence to make sure the patient was appropriately ventilated and hydrated. Once the cement had reached appropriate consistency, the cement gun was used to fill the canal in a retrograde fashion starting at the restrictor. Cement was then pressurized into the canal with a blue tipped auto mechanics instructor. The stem was then carefully introduced into the cement taking care to guide the implant into appropriate version. The stem was held in position until the cement had fully set. All extra cement was removed while the cement was hardening. The trunnion was cleansed and the final head was tapped into place to engage the Felix taper. The acetabulum was irrigated and visualized to be free of debris. The hip was carefully reduced. Stability was checked clinically with external rotation to 90 and there was no evidence of instability. Final fluoroscopic images were taken. The wound was then thoroughly irrigated and soaked with a dilute Betadin e rinse for 3 minutes. 3 L of sterile saline was irrigated through the wound using pulsatile lavage. Local anesthetic cocktail was injected into the soft tissues around the surgical field. The wound was then closed in layers. Due to the patient's body habitus an incisional wound VAC was placed over the surgical incision. The drapes were taken down and the patient was carefully transferred off of the [place] table. Following removal of the boots the leg lengths felt acceptable. The patient was then taken to recovery room having tolerated the procedure well. Chicho Melendrez PA-C was required as a skilled culture media laboratory assistant due to the complexity of surgery for patient positioning, draping, exposure, retraction, closure of wound and application of dressing. PLAN: The patient can weight-bear as tolerated on the operative extremity. 2 doses of postoperative antibiotics. DVT prophylaxis with aspirin 81 mg twice a day based on preoperative risk stratification. Physical therapy for gait benedict ruiz.
--- NOTE | 2025-03-26 14:43 | XR ---
EXAMINATION TYPE: XR Hip Limited , [place] guidance operating room Intraoperative/procedural fluoroscopi c services were provided. CLINICAL INDICATION:Female, 74 years old with history of LEFT HIP OA; , [facility] FINDINGS: Post surgical changes from left hip arthroplasty. Hardware appears intact with appropriate alignment. No radiographic evidence for complication. Total fluoroscopy time is 25.8 seconds. DAP: 0.8897 Gycm2 Please see the operative/procedural note for further details. [facility], , 03/26/2025 2:41 PM
[2025-03-26] MEDS: HYDROmorphone 0.5 MG/0.5 ML SYRINGE IVP PRN (16:55)
[2025-03-26] MEDS: SODIUM CHLORIDE 0.9% 1,000 ML IV SCH (16:55)
[2025-03-26 20:21] LABS: Glucose,Whole Blood 221 mg/dL (70-110)
[2025-03-26] MEDS ORDERED: ALBUTEROL NEBULIZED 2.5 MG/3 ML INHALATION PRN (21:52)
[2025-03-26] MEDS ORDERED: ACETAMINOPHEN TAB 500 MG TAB PO PRN (21:52)
[2025-03-26] MEDS: HYDROcodone/APAP 5-325MG 1 EACH TAB PO PRN (22:27)
[2025-03-26] MEDS: diazePAM 5 MG TAB PO PRN (22:27)
[2025-03-26] MEDS: ASPIRIN 81 MG PO SCH (22:27)
[2025-03-26] MEDS: SENNOSIDES-DOCUSATE SODIUM 1 EACH TAB PO SCH (22:55)
[2025-03-27] MEDS: BACLOFEN 10 MG TAB PO PRN (05:01)
[2025-03-27] MEDS: HYDROcodone/APAP 10-325MG 1 EACH TAB PO PRN (05:01)
[2025-03-27] MEDS: PANTOPRAZOLE 40 MG TABLET PO SCH (06:34)
[2025-03-27] MEDS: FAMOTIDINE 20 MG TAB PO SCH (08:37)
--- NOTE | 2025-03-27 08:41 | P.DS ---
Providers Attending physician: Juaquin Lazaro Consults: 03/26/25 14:39 Consult Physician Routine Consulting Provider: Kelly Silva Consult Reason/Comments: post op medical management Do you want consulting provider notified?: Yes Primary care physician: Chet Ibarra [facility] Course: This is a 74-year-old patient, with past medical history of severe left hip osteoarthritis, who failed nonsurgical conservative management. On 03/26/2025 the patient presented to the [facility] pre-op department for scheduled direct anterior total hip arthroplasty with Dr. Lazaro. The patient tolerated the procedure well. The patient was transferred to the orthopedic floor. The patient had no acute events over night. The patient's pain has been well- controlled. Patient was examined at bedside. Patient is resting comfortably in bed. No apparent distress. They are awake, alert and able to answer questions. Inspection: The surgical wound VAC dressing is intact, there is no drainage or strikethrough. The skin surrounding the dressing is free of erythema. There is mild swelling in the operative thigh. Palpation: The operative calf is soft to compression. No calf tenderness. Neurovascular: Operative femoral nerve function is intact. The patient is able to actively plantarflex and dorsiflex their operative ankle and toes. Operative extremity sensation is intact to light touch throughout Their operative foot appears well perfused, palpable dorsalis pedis pulse, and capillary refill under 2 seconds. If patient is cleared by internal medicine, and passes physical therapy, patient can discharge home today. Patient has pain medicine at home and can resume at home. A prescription for doxycycline was sent to our in-house pharmacy for patient to take twice a day for 2 weeks. Paper prescription for walker and gait belt placed in the patient's chart. Plan follow up in two weeks in our office. Please see med rec for a list of accurate medications. Dictation was produced using [employer] dictation software, please excuse any grammatical, word or spelling errors. Assessment: Status post left total hip arthroplasty and application of surgical wound VAC on 03/26/2025 for severe left hip osteoarthritis Severe left hip osteoarthritis Plan - Discharge Summary Discharge Rx Participant: Yes New Discharge Prescriptions: New Doxycycline Monohydrate [Monodox] 100 mg PO BID #28 cap No Action Ubidecarenone [Co Q-10] 200 mg PO DAILY Pravastatin Sodium [Pravachol] 40 mg PO HS Ergocalciferol (Vitamin D2) [Vitamin D2] 50,000 unit PO Q14D Cyanocobalamin (Vitamin B-12) [Vitamin B-12] 1,000 mcg PO DAILY Dicyclomine [Bentyl] 10 mg PO TID PRN PRN Reason: IBS hydrALAZINE HCL [Apresoline] 25 mg PO DIRECTED PRN PRN Reason: take if BP >150/88 Pantoprazole [Protonix] 40 mg PO DAILY Metoprolol Succinate (ER) [Toprol Xl] 25 mg PO HS Theraworx 1 day TOPICAL DIRECTED PRN PRN Reason: leg cramps Turmeric Root Extract [Turmeric] 500 mg PO DAILY [place] Eye Vitamin 1 tab PO DAILY Magnesium 250 mg PO DAILY Ibuprofen [Motrin] 800 mg PO DIRECTED PRN PRN Reason: Pain Baclofen [Lioresal] 20 mg PO DIRECTED PRN PRN Reason: Muscle Spasm amLODIPine [Norvasc] 5 mg PO HS Repaglinide [Prandin] 1 mg PO DAILY Multivitamins, Thera [Multivitamin (formulary)] 1 tab PO DAILY ALPRAZolam [Xanax] 0.25 mg PO DAILY PRN PRN Reason: Anxiety rOPINIRole HCL 1 mg PO BID Valsartan [Diovan] 320 mg PO DAILY Albuterol Inhaler [Ventolin Hfa Inhaler] 1 - 2 puff INHALATION Q6H PRN PRN Reason: Shortness Of Breath Loperamide [Imodium] 2 mg PO DIRECTED PRN PRN Reason: Diarrhea Acetaminophen [Tylenol Extra Strength] 500 mg PO Q6H PRN PRN Reason: Pain Discharge Medication List Cyanocobalamin (Vitamin B-12) [Vitamin B-12] 1,000 mcg PO DAILY 09/15/18 [History] Ergocalciferol (Vitamin D2) [Vitamin D2] 50,000 unit PO Q14D 09/15/18 [History] Pravastatin Sodium [Pravachol] 40 mg PO HS 09/15/18 [History] Ubidecarenone [Co Q-10] 200 mg PO DAILY 09/15/18 [History] ALPRAZolam [Xanax] 0.25 mg PO DAILY PRN 09/26/23 [History] Albuterol Inhaler [Ventolin Hfa Inhaler] 1 - 2 puff INHALATION Q6H PRN 09/26/23 [History] Dicyclomine [Bentyl] 10 mg PO TID PRN 09/26/23 [History] Metoprolol Succinate (ER) [Toprol Xl] 25 mg PO HS 09/26/23 [History] Multivitamins, Thera [Multivitamin (formulary)] 1 tab PO DAILY 09/26/23 [History] Pantoprazole [Protonix] 40 mg PO DAILY 09/26/23 [History] Repaglinide [Prandin] 1 mg PO DAILY 09/26/23 [History] Theraworx 1 day TOPICAL DIRECTED PRN 09/26/23 [History] Valsartan [Diovan] 320 mg PO DAILY 09/26/23 [History] amLODIPine [Norvasc] 5 mg PO HS 09/26/23 [History] hydrALAZINE HCL [Apresoline] 25 mg PO DIRECTED PRN 09/26/23 [History] rOPINIRole HCL 1 mg PO BID 09/26/23 [History] Acetaminophen [Tylenol Extra Strength] 500 mg PO Q6H PRN 03/24/25 [History] Baclofen [Lioresal] 20 mg PO DIRECTED PRN 03/24/25 [History] Ibuprofen [Motrin] 800 mg PO DIRECTED PRN 03/24/25 [History] Loperamide [Imodium] 2 mg PO DIRECTED PRN 03/24/25 [History] Magnesium 250 mg PO DAILY 03/24/25 [History] [place] Eye Vitamin 1 tab PO DAILY 03/24/25 [History] Turmeric Root Extract [Turmeric] 500 mg PO DAILY 03/24/25 [History] Doxycycline Monohydrate [Monodox] 100 mg PO BID #28 cap 03/27/25 [Rx] Follow up Appointment(s)/Referral(s): Juaquin Lazaro MD [Medical Doctor] - 2 Weeks Activity/Diet/Wound Care/Special Instructions: 1. Weight-bear as tolerated on your operative extremity unless instructed otherwise. Use a walker or other assistive device to ambulate. 2. Leave surgical dressing in place. If your dressing becomes saturated with blood, there is drainage, or the dressing becomes loose please contact the office. 3. It is okay to shower with your surgical dressing, but do not submerge in water (no hot tubs, bath's, swimming etc.) 4. Take your blood clot prevention medication as prescribed (aspirin, Eliquis, Xarelto, and Plavix are commonly prescribed medications for blood clot prevention) 5. While taking [place] or Percocet for pain take a stool softener (Ex: Colace) and drink lots of water. 6. Keep all follow-up appointments as scheduled. You will usually be seen in 1-2 weeks following surgery. 7. Please contact the office with any questions or concerns [phone] Patient has pain medication at home, and can resume at home. Discharge Disposition: HOME WITH HOME HEALTH SERVICES
[2025-03-27 10:03] VITALS: BP 111/63; PULSE 60; RESP 18; TEMP 98
[2025-03-27 11:31] LABS: Basophils # (A) 0.01 X 10*3/uL (0.00-0.10); Basophils % (A) 0.1 %; Eosinophils # (A) 0 X 10*3/uL (0.04-0.35); Eosinophils % (A) 0 %; HCT 29.9 % (37.2-46.3); HGB 9.1 g/dL (12.0-15.0); Immature Grans, Automated 0.60 %; Lymphocytes # (A) 0.72 X 10*3/uL (0.90-5.00); Lymphocytes % (A) 5.7 %; MCH 27.2 pg (27.0-32.0); MCHC 30.4 g/dL (32.0-37.0); MCV 89.3 FL (80.0-97.0); Microcytosis (M) 2+ (None Seen); Monocytes # (A) 0.67 X 10*3/uL (0.20-1.00); Monocytes % (A) 5.3 %; NRBC Per 100 WBC 0 X 10*3/uL (0.00-0.01); Neutrophils # (A) 11.12 X 10*3/uL (1.80-7.70); Neutrophils % (A) 88.3 %; Platelet Count 206 X 10*3/uL (140-440); RBC 3.35 X 10*6/uL (4.10-5.20); RDW 14.2 % (11.5-14.5); WBC 12.59 X 10*3/uL (4.50-10.00)
[2025-03-27] MEDS ORDERED: MULTIVITAMINS, THERA 1 EACH TAB PO SCH (12:00)
[2025-03-27] MEDS ORDERED: METOPROLOL SUCCINATE (ER) 25 MG TAB.ER.24H PO SCH (21:00)
[2025-03-27] MEDS ORDERED: amLODIPine 5 MG TAB PO SCH (21:00)
[2025-03-27] MEDS ORDERED: PRAVASTATIN SODIUM 40 MG TAB PO SCH (21:00)
[2025-03-27] MEDS ORDERED: TEMAZEPAM 15 MG CAP PO PRN (22:00)
--- NOTE | 2025-03-28 14:05 | P.CONS ---
History of Present Illness - Reason for Consult Consult date: 03/27/25 medical management status post left total hip arthroplasty - History of Present Illness This is a pleasant 74-year-old female who was admitted with orthopedics as attending and is status post left total hip arthroplasty. Patient follows with Dr. Ibarra in the outpatient setting with a past medical history of asthma, di abetes, GERD, hyperlipidemia, hypertension, osteoarthritis, IBS, anxiety, obesity. Patient did undergo presurgical clearance and reports to feeling well today and is awaiting to go home. Patient was evaluated by physical therapy and did well and has support in the home and will be going home with rehab in the outpatient setting. Patient did have CBC drawn which showed a mildly elevated white count of 12.59 and hemoglobin stable at 9.1. Likely reactive and encourage patient to use incentive spirometer at least 10 times every hour while awake and continue using at home. Patient to follow-up outpatient with repeat labs with primary care provider on discharge. Patient is extremely anxious to go home and reports will be going home soon. REVIEW OF SYSTEMS: CONSTITUTIONAL: No fever, no malaise, no fatigue. HEENT: No recent visual problems or hearing problems. Denied any sore throat. CARDIOVASCULAR: No chest pain, orthopnea, PND, no palpitations, no syncope. PULMONARY: No shortness of breath, no cough, no hemoptysis. GASTROINTESTINAL: No diarrhea, no nausea, no vomiting, no abdominal pain. NEUROLOGICAL: No headaches, no weakness, no numbness. HEMATOLOGICAL: Denies any bleeding or petechiae. GENITOURINARY: Denies any burning micturition, frequency, or urgency. MUSCULOSKELETAL/RHEUMATOLOGICAL: Denies any joint pain, swelling, or any muscle pain. Reports some left hip discomfort ENDOCRINE: Denies any polyuria or polydipsia. The rest of the 14-point review of systems is negative. PHYSICAL EXAMINATION: GENERAL: The patient is alert and oriented x3, not in any acute distress. Well developed, well nourished. Elderly appearing, obese HEENT: Pupils are round and equally reacting to light. EOMI. No scleral icterus. No conjunctival pallor. Normocephalic, atraumatic. No pharyngeal erythema. No thyromegaly. CARDIOVASCULAR: S1 and S2 muffled PULMONARY: Diminished breath sounds bilaterally otherwise chest is clear to auscultation, no wheezing or crackles. ABDOMEN: Soft, obese nontender, nondistended, normoactive bowel sounds. No palpable organomegaly. MUSCULOSKELETAL: No joint swelling or deformity. EXTREMITIES: No cyanosis, clubbing, or pedal edema. Left hip surgical dressing is dry and intact and soft near anterior approach NEUROLOGICAL: Gross neurological examination did not reveal any focal deficits. Diffusely weak SKIN: No rashes. Assessment: Status post left total hip arthroplasty Leukocytosis, likely reactive, patient does not appear infectious and denies any shortness of breath, cough, pain or burning with urination Obesity with a BMI 37.7 History of asthma, not in exacerbation GERD Diabetes mellitus, type II Hyperlipidemia Hypertension History of osteoarthritis History of IBS History of anxiety GI prophylaxis DVT prophylaxis Full code Plan: Patient was admitted under orthopedic status post left total hip arthroplasty. Patient is doing relatively well and was able to work physical therapy reporting her pain is controlled on current regimen and will continue with orthopedics recommendations regarding DVT prophylaxis and pain management Medications reviewed and resumed as appropriate Recommend Accu-Cheks AC and at bedtime and using sliding scale as needed Patient does have incentive spirometer at the bedside and encouraged to continue using and take home and continue using while awake Patient to follow-up with primary care provider on discharge as scheduled Patient is medically stable for discharge once cleared by orthopedics Thank you kindly for this consultation. We will continue to follow during hospitalization. The impression and plan of care has been dictated by Carolina Tijerina, Nurse Practitioner as directed. Dr. Maria Luz MD I have performed a history and examination and MDM of this patient, discussed the same with the dictator, and agree with the dictator's assessment and plan as written ,documented as a scribe. Based on total visit time, I have performed more than 50% of the visit. Past Medical History Past Medical History: Asthma, Diabetes Mellitus, GERD/Reflux, Hyperlipidemia, Hypertension, Osteoarthritis (OA) Additional Past Medical History / Comment(s): IBS, hx. kidney stones, cyst on kidney- monitoring History of Any Multi-Drug Resistant Organisms: None Reported Past Surgical History: Cholecystectomy, Joint Replacement Additional Past Surgical History / Comment(s): missy. knees replaced, left eye surgery, lithotripsy Past Anesthesia/Blood Transfusion Reactions: Postoperative Nausea & Vomiting (PONV) Smoking Status: Never smoker - Past Family History Mother Family Medical History: No Reported History Medications and Allergies Home Medications Medication Instructions Recorded Confirmed Type Cyanocobalamin (Vitamin B-12) 1,000 mcg PO DAILY 09/15/18 03/25/25 History [Vitamin B-12] Ergocalciferol (Vitamin D2) 50,000 unit PO Q14D 09/15/18 03/26/25 History [Vitamin D2] Pravastatin Sodium [Pravachol] 40 mg PO HS 09/15/18 03/26/25 History Ubidecarenone [Co Q-10] 200 mg PO DAILY 09/15/18 03/25/25 History ALPRAZolam [Xanax] 0.25 mg PO DAILY PRN 09/26/23 03/26/25 History Albuterol Inhaler [Ventolin Hfa 1 - 2 puff INHALATION Q6H PRN 09/26/23 03/26/25 History Inhaler] Dicyclomine [Bentyl] 10 mg PO TID PRN 09/26/23 03/26/25 History Metoprolol Succinate (ER) [Toprol 25 mg PO HS 09/26/23 03/26/25 History XL] Multivitamins, Thera [Multivitamin 1 tab PO DAILY 09/26/23 03/25/25 History (formulary)] Pantoprazole [Protonix] 40 mg PO DAILY 09/26/23 03/26/25 History Repaglinide [Prandin] 1 mg PO DAILY 09/26/23 03/26/25 History Theraworx 1 day TOPICAL DIRECTED PRN 09/26/23 03/25/25 History Valsartan [Diovan] 320 mg PO DAILY 09/26/23 03/26/25 History amLODIPine [Norvasc] 5 mg PO HS 09/26/23 03/26/25 History hydrALAZINE HCL [Apresoline] 25 mg PO DIRECTED PRN 09/26/23 03/26/25 History rOPINIRole HCL 1 mg PO BID 09/26/23 03/26/25 History Acetaminophen [Tylenol Extra 500 mg PO Q6H PRN 03/24/25 03/26/25 History Strength] Baclofen [Lioresal] 20 mg PO DIRECTED PRN 03/24/25 03/26/25 History Ibuprofen [Motrin] 800 mg PO DIRECTED PRN 03/24/25 03/25/25 History Loperamide [Imodium] 2 mg PO DIRECTED PRN 03/24/25 03/26/25 History Magnesium 250 mg PO DAILY 03/24/25 03/24/25 History [place] Eye Vitamin 1 tab PO DAILY 03/24/25 03/25/25 History Turmeric Root Extract [Turmeric] 500 mg PO DAILY 03/24/25 03/25/25 History Aspirin 81 mg PO BID #60 tab 03/27/25 Rx Doxycycline Monohydrate [Monodox] 100 mg PO BID #28 cap 03/27/25 Rx Allergies Allergy/AdvReac Type Severity Reaction Status Date / Time celecoxib [From Celebrex] AdvReac Abdominal Verified 03/26/25 12:01 Pain Physical Exam Vitals: Vital Signs Temp Pulse Resp BP BP Pulse Ox 03/27/25 01:12 98.3 F 54 L 16 143/60 95 03/26/25 18:47 97.3 F L 68 18 132/56 98 03/26/25 17:01 97.5 F L 56 L 15 157/70 100 03/26/25 16:30 51 L 16 134/57 93 L 03/26/25 16:15 52 L 16 126/50 93 L 03/26/25 16:00 51 L 16 140/52 95 03/26/25 15:45 51 L 16 143/52 94 L 03/26/25 15:30 53 L 16 140/54 10 L 03/26/25 15:15 57 L 16 138/53 10 L 03/26/25 15:01 97 F L 58 L 16 137/50 98 03/26/25 12:39 62 14 161/58 99 03/26/25 12:22 70 15 200/69 98 03/26/25 12:06 97.3 F L 68 16 192/90 99 Intake and Output 03/26/25 03/27/25 03/27/25 22:59 06:59 14:59 Intake Total 0 Balance 0 Intake: IV 0 Other: Voiding Method Toilet # Voids 1 3 Weight 112.4 kg Results CBC & Chem 7: 03/27/25 04:09 Labs: Abnormal Lab Results - Last 24 Hours (Table) 03/26/25 Range/Units 20:20 POC Glucose (mg/dL) 221 H (70-110) mg/dL
== END 2025-03-27 11:14 | disposition home health service (06) ==
LOC: OR 11:08 → 4SSUR 14:59 → OR 03-27 11:14
PROVIDERS: ATTEND Orthopaedic Surgery
DX: M16.12 Unilateral primary osteoarthritis, left hip (principal); G89.18 Other acute postprocedural pain; E66.9 Obesity, unspecified; M70.62 Trochanteric bursitis, left hip; D72.829 Elevated white blood cell count, unspecified; E11.9 Type 2 diabetes mellitus without complications; K21.9 Gastro-esophageal reflux disease without esophagitis; I10 Essential (primary) hypertension; F41.9 Anxiety disorder, unspecified; K58.9 Irritable bowel syndrome, unspecified; E78.00 Pure hypercholesterolemia, unspecified; J45.909 Unspecified asthma, uncomplicated; Z79.899 Other long term (current) drug therapy; Z68.37 Body mass index [BMI] 37.0-37.9, adult; Z87.442 Personal history of urinary calculi; Z90.49 Acquired absence of other specified parts of digestive tract; Z96.653 Presence of artificial knee joint, bilateral; Z98.890 Other specified postprocedural states; Z79.82 Long term (current) use of aspirin; Z88.6 Allergy status to analgesic agent
CPT/HCPCS: 27130; 97161; 64473; 85025; 73501; C1776; C1713; J2250; J1100; J0690 ×2; J2405; J3010; J1885; J1171; J1308